=== PATIENT | female | born 1990 | race Caucasian/White ===

== ENCOUNTER 2016-11-29 17:08 | Emergency (ER) | payer BC, OTHER ==
--- NOTE | 2016-11-29 17:25 | UC ---
Abdominal Pain Female HPI - HPI Summary HPI Summary: The patient comes in today for: 1. Abdominal pain: Onset: 8 hours. Palliative/provocative: Sitting up makes it better as she leans back. Quality: Sharp and dull at times. Region: epigastric. Severity: 3/10 but can shoot up to a 5/10 Time: Comes and goes. Associated symptoms: Fevers: No temperature taken. Vomiting: None, but has nausea. Diarrhea: None. Last meal: Noon. Previous disease: None. Home: Parents and little brother. Her father has abdominal pain, but he has an umbilical hernia. * - History of Current Complaint Stated Complaint: ABDOMINAL PAIN Time Seen by Provider: 11/29/16 17:12 Hx Obtained From: Patient Hx Last Menstrual Period: 2 weeks ago ?: No Allergies/Adverse Reactions: Allergies Allergy/AdvReac Type Severity Reaction Status Date / Time Sulfa Antibiotics Allergy Rash Verified 01/16/16 09:37 PMH/Surg Hx/FS Hx/Imm Hx Previously Healthy: Yes Endocrine History Of: Denies: Diabetes, Thyroid Disease, Hyperthyroidism, Hypothyroidism, Dyslipidemia Cardiovascular History Of: Denies: Cardiac Disorders, Hypertension, Pacemaker/ICD, Myocardial Infarction , Congestive Heart Failure, Atrial Fibrillation, Deep Vein Thrombosis, Bleeding Disorders Respiratory History Of: Denies: COPD, Asthma, Bronchitis, Pneumonia, Pulmonary Embolism GI/ History Of: Denies: Gastroesophageal Reflux, Ulcer, Gastrointestinal Bleed, Gall Bladder Disease, Kidney Stones, Diverticulitis, Renal Disease, Urosepsis Neurological History Of: Denies: TIA, CVA, Dementia, Seizures, Migraine Psychological History Of: Denies: Anxiety, Depression, Bipolar Disorder, Schizophrenia, Post Traumatic Stress Disorder Cancer History Of: Denies: Lung Cancer, Colorectal Cancer, Breast Cancer, Prostate Cancer, Cervical Cancer Other History Of: Negative For: HIV, Hepatitis B, Hepatitis C, Anticoagulant Therapy - Surgical History Surgical History: Yes Surgery Procedure, Year, and Place: t & A; ear tubes multiple times - Family History Known Family History: Positive: Cardiac Disease, Hypertension - Social History Occupation: Employed Full-time Alcohol Use: Rare Substance Use Type: None Smoking Status (MU): Former Smoker Type: Cigarettes When Did the Patient Quit Smoking/Using Tobacco: 2 yrs - Immunization History Most Recent Influenza Vaccination: 2013/2014 Review of Systems Constitutional: Negative Skin: Negative Eyes: Negative ENT: Negative Respiratory: Negative Cardiovascular: Negative Gastrointestinal: Abdominal Pain Genitourinary: Negative All Other Systems Reviewed And Are Negative: Yes Physical Exam Triage Information Reviewed: Yes Appearance: Well-Appearing, No Pain Distress, Well-Nourished Vital Signs Reviewed: Yes Eyes: Positive: Conjunctiva Clear. Negative: Discharge ENT: Positive: Hearing grossly normal. Negative: Pharyngeal erythema, Nasal congestion, Nasal drainage, TM bulging, TM dull, TM red, Tonsillar swelling, Tonsillar exudate Dental: Negative: Gross Decay/Caries @, Dental Fracture @ Neck: Positive: Supple, Nontender, No Lymphadenopathy. Negative: Nuchal Rigidity Respiratory: Positive: Chest non-tender, Lungs clear, No respiratory distress, No accessory muscle use. Negative: Crackles, Wheezing Cardiovascular: Positive: RRR, No Murmur Abdomen Description: Positive: No Organomegaly, Soft. Negative: Nontender - She has tenderness to palpation of the epigastric area. There is a fading of the pain way as one palpates towards the RUQ and the LUQ. There is no rebound, but there is percussion tenderness. The exam was hindered by the patien'ts body habitus. BMI: 50.8, Distended, Guarding Musculoskeletal: Positive: Strength Intact, ROM Intact, No Edema Neurological: Positive: Alert, Muscle Tone Normal Psychological: Positive: Age Appropriate Behavior, Consolable Skin: Negative: rashes, breakdown Abd Pain Female Course/Dx - Course Course Of Treatment: The patient was told that I don't know for sure what is causing her abdominal/epigastric. pain. The patient was also told that there are many causes for abdominal pain--. some which are benign and some which are life-threatening. Furthermore, it was. mentioned that the life-threatening causes of abdominal pain can present with. minimal symptoms suggesting that the problem is less severe than it actually is, atypical symptoms suggesting that the problem is some other condition or even be present with no symptoms. Becasue of these facts and the fact that we don't have here the testing methods commonly used to assess abdomianl. pain, and their timely results we are limited as to how deep we can evaluate her for the cause of her pain. She was told of her different diagnostic options. At this time, she wants to go to the [facility]. - Differential Dx/Diagnosis Provider Diagnoses: epigastric abdominal pain. - Physician Notification/Consults Discussed Patient Care With: Dr. Mcneill Time Discussed With Above Provider: 18:10 Discharge - Discharge Plan Condition: Stable Disposition: AGAINST MEDICAL ADVICE Additional Instructions: Please go directly to the [facility].
[2016-11-29 17:28] VITALS: BP 153/99
== END 2016-11-29 18:28 | disposition left against medical advice (07) ==
LOC: UCEAST 17:08
DX: R10.13 Epigastric pain (principal); Z88.2 Allergy status to sulfonamides; Z87.891 Personal history of nicotine dependence
CPT/HCPCS: 81002; 87086; 99212; G0463

== ENCOUNTER 2016-11-29 18:42 | Emergency (ER) | payer OTHER ==
[2016-11-29 19:52] LABS: Urine Bacteria Absent (Absent); Urine Bilirubin Negative (Negative); Urine Glucose Negative (Negative); Urine Nitrite Negative (Negative)
[2016-11-29 20:54] LABS: Hematocrit 32 % (35-47); Hemoglobin 9.7 g/dl (12.0-16.0); Mean Corpuscular HGB Conc 31 g/dl (31-36); Mean Corpuscular Hemoglobin 23 pg (27-31); Mean Corpuscular Volume 75 fL (80-97); Mean Platelet Volume 9 um3 (7.4-10.4); Red Blood Count 4.24 10^6/ul (4.0-5.4); Red Cell Distribution Width 17 % (10.5-15); White Blood Count 13.4 10^3/ul (3.5-10.8)
[2016-11-29 21:06] LABS: ALT 14 U/L (7-52); AST 11 U/L (13-39); Albumin 3.9 g/dL (3.2-5.2); Alkaline Phosphatase 73 U/L (34-104); Anion Gap 7 mmol/L (2-11); BUN/Creatinine Ratio 21.3 (8-20); Blood Urea Nitrogen 16 mg/dL (6-24); CO2 Carbon Dioxide 23 mmol/L (22-32); Chloride 104 mmol/L (101-111); EGFR African American 120.1 (>60); EGFR Non-African American 93.4 (>60); Globulin 3.1 g/dL (2-4); Glucose 87 mg/dL (70-100); Lipase < 10 U/L (11.0-82.0); Potassium 3.8 mmol/L (3.5-5.0); Sodium 134 mmol/L (133-145)
[2016-11-29] MEDS ORDERED: Pantoprazole IV* 40 MG IV ONE (22:44)
--- NOTE | 2016-11-29 22:46 | RAD ---
INDICATION: Right upper quadrant pain. COMPARISON: There are no prior studies available for comparison. TECHNIQUE: Multiple real-time images of the right upper quadrant were obtained. FINDINGS: There is a gallstone in the neck of the gallbladder. The gallbladder wall is not thickened. No pericholecystic fluid is present. No intra or extrahepatic ductal distention is present. The common bile duct measured 0.5 cm in diameter. The liver is normal in size without significant focal abnormality. The pancreas is partially obscured by overlying bowel gas. The right kidney is normal in size without evidence for hydronephrosis. IMPRESSION: CHOLELITHIASIS.
[2016-11-29 23:37] VITALS: BP 128/70
--- NOTE | 2016-12-01 00:28 | ED ---
John Garza Matthew, scribed for Tk López MD on 11/29/16 at 2044 . Abdominal Pain/Female - HPI Summary HPI Summary: A 26 y/o female presents to the ED with upper abdominal pain since 09:00 today. The pain is described as dull and aching and rated 2/10 in severity and 6/10 at is worst. The pain is unaffected by food. Associated symptoms include nausea and increased urination frequency. The patient denies vomiting, diarrhea, dysuria, and black stools. BM this morning, which was normal. LNMP was 2 weeks ago. - History of Current Complaint Chief Complaint: EDAbdPain Stated Complaint: ABD PAIN/CONV CARE Time Seen by Provider: 11/29/16 19:55 Hx Obtained From: Patient Hx Last Menstrual Period: 2 weeks ago ?: No Onset/Duration: Gradual Onset, Lasting Hours, Still Present Timing: Constant Severity Initially: Moderate Severity Currently: Mild Pain Intensity: 3 Pain Scale Used: 0-10 Numeric Location: Diffuse - upper abdomen Radiates: No Character: Dull, Other: - aching Aggravating Factor(s): Nothing Alleviating Factor(s): Nothing Associated Signs and Symptoms: Positive: Nausea, Other: - increased frequency. Negative: Blood in Stool, Vomiting, Diarrhea Allergies/Adverse Reactions: Allergies Allergy/AdvReac Type Severity Reaction Status Date / Time Sulfa Antibiotics Allergy Rash Verified 11/29/16 19:19 PMH/Surg Hx/FS Hx/Imm Hx Endocrine/Hematology History: Denies: Hx Anticoagulant Therapy, Hx Diabetes, Hx Thyroid Disease Cardiovascular History: Denies: Hx Congestive Heart Failure, Hx Deep Vein Thrombosis, Hx Hypertension , Hx Myocardial Infarction, Hx Pacemaker/ICD Respiratory History: Denies: Hx Asthma, Hx Chronic Obstructive Pulmonary Disease (COPD), Hx Lung Cancer, Hx Pneumonia, Hx Pulmonary Embolism GI History: Denies: Hx Gall Bladder Disease, Hx Gastrointestinal Bleed, Hx Ulcer, Hx Urosepsis History: Denies: Hx Kidney Stones, Hx Renal Disease Neurological History: Denies: Hx Dementia, Hx Migraine, Hx Seizures, Hx Transient Ischemic Attacks (TIA) Psychiatric History: Denies: Hx Anxiety, Hx Depression, Hx Schizophrenia, Hx Bipolar Disorder - Surgical History Surgery Procedure, Year, and Place: t & A; ear tubes multiple times Infectious Disease History: No Infectious Disease History: Denies: Hx Hepatitis, Hx Human Immunodeficiency Virus (HIV), History Other Infectious Disease, Traveled Outside the [place] in Last 30 Days - Family History Known Family History: Positive: Cardiac Disease, Hypertension - Social History Alcohol Use: Rare Substance Use Type: Reports: None Hx Tobacco Use: Yes - quit 2011 Smoking Status (MU): Former Smoker Type: Cigarettes Review of Systems Constitutional: Negative Eyes: Negative ENT: Negative Cardiovascular: Negative Respiratory: Negative Positive: Abdominal Pain - upper abdominal , Nausea. Negative: Vomiting, Diarrhea Genitourinary: Negative Musculoskeletal: Negative Skin: Negative Neurological: Negative Psychological: Normal All Other Systems Reviewed And Are Negative: Yes Physical Exam Triage Information Reviewed: Yes Vital Signs On Initial Exam: Initial Vitals Temp Pulse Resp BP Pulse Ox 98.4 F 72 16 130/82 100 11/29/16 19:15 11/29/16 19:15 11/29/16 19:15 11/29/16 19:15 11/29/16 19:15 Vital Signs Reviewed: Yes Appearance: Positive: Well-Appearing, No Pain Distress, Obese Skin: Positive: Warm, Skin Color Reflects Adequate Perfusion, Dry Eyes: Positive: EOMI, ROSS ENT: Positive: Normal ENT inspection Neck: Positive: Supple, Nontender Respiratory/Lung Sounds: Positive: Clear to Auscultation, Breath Sounds Present Cardiovascular: Positive: RRR Abdomen Description: Positive: Soft, Other: - moderate epigastric tenderness; mild bilateral upper quadrant tenderness Bowel Sounds: Positive: Present Musculoskeletal: Positive: Normal, Strength/ROM Intact Neurological: Positive: Normal, Sensory/Motor Intact, Alert, Oriented to Person Place, Time Psychiatric: Positive: Normal, Affect/Mood Appropriate Diagnostics - Vital Signs Vital Signs Temp Pulse Resp BP Pulse Ox 11/29/16 19:15 98.4 F 72 16 130/82 100 - Laboratory Lab Results: Lab Results 11/29/16 Range/Units 19:35 Urine Color Yellow Urine Appearance Cloudy Urine pH 5.0 (5-9) Ur Specific [place] 1.023 (1.010-1.030) Urine Protein Negative (Negative) Urine Ketones Negative (Negative) Urine Blood Negative (Negative) Urine Nitrate Negative (Negative) Urine Bilirubin Negative (Negative) Urine Urobilinogen Negative (Negative) Ur Leukocyte Esterase 3+ H (Negative) Urine WBC (Auto) 2+(11-20/hpf) H (Absent) Urine RBC (Auto) 1+(3-5/hpf) H (Absent) Ur Squamous Epith Cells Present H (Absent) Urine Bacteria Absent (Absent) Urine Glucose Negative (Negative) Result Diagrams: 11/29/16 20:10 11/29/16 20:10 Lab Statement: Any lab studies that have been ordered have been reviewed, and results considered in the medical decision making process. - Ultrasound No standard instances Ultrasound Interpretation: Positive (See Comments) - IMPRESSION: CHOLELITHIASIS. Ultrasound Interpretation Completed By: Radiologist Abdominal Pain Fem Course/Dx - Course Course Of Treatment: Ms. Eldridge presented C/O epigastric pain for several days. She was tender in the epigastium and RUQ. She was found to have some gallstones but no cholecystitis. Her labs revealed a slight leukocytosis. She improved with protonix and sucralfate and I will give her a short course of omeprazole and recommend F/U. - Diagnoses Provider Diagnoses: Epigastric abdominal pain Discharge - Discharge Plan Condition: Stable Disposition: HOME Prescriptions: Omeprazole CAP* [Prilosec CAP* 20 MG] 20 mg PO BID #20 cap. Patient Education Materials: Omeprazole (By mouth), Epigastric Pain (ED) Referrals: Shira Wilhelm, [employer] [Primary Care Provider] - 3 Days Additional Instructions: Please follow-up with your primary care physician. The documentation as recorded by the John medeiros Matthew accurately reflects the service I personally performed and the decisions made by me, Tk López MD.
== END 2016-11-29 23:36 | disposition home or self-care (01) ==
LOC: ED 18:42
DX: R10.13 Epigastric pain (principal); Z87.891 Personal history of nicotine dependence; Z88.2 Allergy status to sulfonamides; K80.20 Calculus of gallbladder without cholecystitis without obstruction
CPT/HCPCS: 36415; 76705; 80053; 81002; 81003; 81015; 83605; 83690; 85025; 86140; 87086; 96374; 99212; 99282; G0463

== ENCOUNTER 2017-12-16 15:48 | Emergency (ER) | payer SELFPAY ==
[2017-12-16 16:07] VITALS: BP 143/84
--- NOTE | 2017-12-16 16:25 | UC ---
Knee Pain HPI - History of Current Complaint Chief Complaint: UCLowerExtremity Stated Complaint: KNEE INJURY Time Seen by Provider: 12/16/17 16:15 Hx Obtained From: Patient Hx Last Menstrual Period: 2 weeks ago ?: No Onset/Duration: Sudden Onset - fell over an object and fell onto R knee Severity Initially: Moderate Severity Currently: Mild Pain Intensity: 2 Character: Throbbing, Stiffness Aggravating Factor(s): Movement, Weight Bearing Alleviating Factor(s): Rest, Position Associated Signs And Symptoms: Positive: Redness Able to Bear Weight: Yes - Allergies/Home Medications Allergies/Adverse Reactions: Allergies Allergy/AdvReac Type Severity Reaction Status Date / Time Sulfa (Sulfonamide Allergy Rash Verified 12/16/17 16:08 Antibiotics) Home Medications: Home Medications Dextroamphetamine/Amphetamine [Dextroamp-Amphetamin 20 mg Tab] 1 tab PO BID [History Confirmed 12/16/17] buPROPion TAB* [Wellbutrin TAB*] 300 mg PO DAILY 12/16/17 [History Confirmed ] PMH/Surg Hx/FS Hx/Imm Hx Previously Healthy: Yes Psychological History: Depression Other Psychological History: ADHD Other History Of: Negative For: HIV, Hepatitis B, Hepatitis C, Anticoagulant Therapy - Surgical History Surgical History: Yes Surgery Procedure, Year, and Place: t & A; ear tubes multiple times - Family History Known Family History: Positive: Cardiac Disease, Hypertension - Social History Occupation: Employed Full-time - pharmacy Lives: With Family Alcohol Use: Rare Substance Use Type: None Smoking Status (MU): Former Smoker Type: Cigarettes When Did the Patient Quit Smoking/Using Tobacco: 2 yrs - Immunization History Most Recent Influenza Vaccination: Review of Systems Constitutional: Negative Skin: Negative Respiratory: Negative Cardiovascular: Negative Motor: Negative Neurovascular: Negative Musculoskeletal: Other: - pain R knee Neurological: Negative Psychological: Negative Is Patient Immunocompromised?: No All Other Systems Reviewed And Are Negative: Yes Physical Exam Triage Information Reviewed: Yes Appearance: Well-Appearing, No Pain Distress, Obese Vital Signs: Initial Vital Signs Temp 98.3 F 12/16/17 16:05 Pulse 86 12/16/17 16:05 Resp 12 12/16/17 16:05 BP 143/84 12/16/17 16:05 Pulse Ox 100 12/16/17 16:05 Vital Signs Reviewed: Yes Neck exam: Normal Respiratory Exam: Normal Cardiovascular Exam: Normal Musculoskeletal: Positive: Strength Intact, ROM Intact, Other: - point tenderness R patella, no pateller apprehension on exam Neurological Exam: Normal Psychological Exam: Normal Skin Exam: Normal Diagnostics - Radiology No standard instances Xray Interpretation: No Acute Changes Knee Pain Course/Dx - Differential Dx/Diagnosis Differential Diagnosis/HQI/PQRI: Contusion, Fracture (Closed), Sprain Provider Diagnoses: R knee contusion Discharge - Discharge Plan Condition: Stable Disposition: HOME Patient Education Materials: Contusion in Adults (ED) Referrals: Shira Wilhelm NP [Primary Care Provider] - 3 Days (if no better) Additional Instructions: Ice and elevate your R knee for 2-3 days use ibuprofen 600-800mg three times a day as needed for pain Use rosina for 3 days, remove for sleep/bedtime
--- NOTE | 2017-12-16 16:36 | RAD ---
HISTORY: Fall, right knee pain COMPARISONS: None VIEWS: 4, Frontal, lateral, axial, and oblique views of the right knee FINDINGS: BONE DENSITY: Normal. BONES: There is no displaced fracture. JOINTS: There is no arthropathy. There is no suprapatellar joint effusion or lipohemarthrosis. ALIGNMENT: There is no dislocation. SOFT TISSUES: Unremarkable. OTHER FINDINGS: None. IMPRESSION: NO ACUTE OSSEOUS INJURY. IF SYMPTOMS PERSIST, RECOMMEND REPEAT IMAGING.
== END 2017-12-16 17:45 | disposition home or self-care (01) ==
LOC: UCEAST 15:48
DX: S80.01XA Contusion of right knee, initial encounter (principal); Z87.891 Personal history of nicotine dependence; W22.8XXA Striking against or struck by other objects, initial encounter; Y92.9 Unspecified place or not applicable
CPT/HCPCS: 99212; G0463

== ENCOUNTER 2018-04-10 19:36 | Emergency (ER) | payer OTHER ==
[2018-04-10] MEDS ORDERED: Ketorolac INJ* 30 MG/ML 1 ML VIAL IV ONE (20:12)
[2018-04-10] MEDS ORDERED: Metoclopramide IV* 5 MG/ML 2 ML VIAL IV ONE (20:12)
--- NOTE | 2018-04-10 20:42 | RAD ---
INDICATION: Abdominal pain. COMPARISON: Comparison is made with a prior right upper quadrant ultrasound from November 29, 2016. TECHNIQUE: A CT scan of the abdomen and pelvis was performed without intravenous and without oral contrast. Contiguous axial sections were obtained from the lung bases through the symphysis pubis. Images were reconstructed in the coronal and sagittal planes. FINDINGS: The lung bases are clear. No pleural effusion is present. The liver is normal in size without significant focal abnormality on this noncontrast study. Note is made of gallstones. The gallbladder is not distended. No surrounding inflammatory changes are seen. The spleen is moderately enlarged without focal abnormality. The pancreas appears to be within normal limits. The adrenal glands and kidneys are normal in size. No renal calculi or hydronephrosis is seen. The aorta is normal in caliber without significant calcific plaque. No significant enlarged retroperitoneal lymph nodes are seen. The stomach, small and large bowel appear nondistended. The appendix is within normal limits. There is mild descending and sigmoid diverticulosis without evidence for diverticulitis or colitis. There is a small periumbilical hernia containing fat. The uterus is anteverted and normal in size. There is a hypodense lesion in the lower uterine segment measuring 1.9 cm in size possibly representing a prominent nabothian cyst. There is a large left ovarian cyst measuring 6.6 x 5.5 cm in size. There is sclerotic change around both sacroiliac joints consistent with sacroiliitis. No significant focal osseous abnormality is seen. IMPRESSION: 1. CHOLELITHIASIS. 2. SPLENOMEGALY. 3. 6.6 CM LEFT OVARIAN CYST. RECOMMEND A FOLLOW-UP PELVIC ULTRASOUND FOR FURTHER EVALUATION. 4. BILATERAL SACROILIITIS.
[2018-04-10 21:20] LABS: EGFR Non-African American 62.4 (>60)
[2018-04-10 21:21] LABS: Urine Appearance Cloudy; Urine Blood Negative (Negative); Urine Color Yellow; Urine Ketones Negative (Negative); Urine Protein Negative (Negative); Urine Specific Gravity 1.017 (1.010-1.030); Urine Urobilinogen Negative (Negative)
[2018-04-10 21:29] LABS: ABS Basophils 0 10^3/ul (0-0.2); ABS Eosinophils 0.2 10^3/ul (0-0.6); ABS Lymphocytes 2.4 10^3/ul (1.0-4.8); ABS Monocytes 0.6 10^3/ul (0-0.8); ABS Neutrophils 8.3 10^3/ul (1.5-7.7); ABS Nucleated RBC 0 10^3/ul; Eosinophil % 1.9 % (0-6); Hematocrit 31 % (35-47); Hemoglobin 9.9 g/dl (12.0-16.0); Lymphocyte % 20.9 % (25-47); Mean Corpuscular HGB Conc 32 g/dl (31-36); Mean Corpuscular Hemoglobin 24 pg (27-31); Mean Corpuscular Volume 75 fL (80-97); Mean Platelet Volume 8.2 um3 (7.4-10.4); Nucleated Red Blood Cells % 0; Platelet Count 248 10^3/ul (150-450); Red Blood Count 4.12 10^6/ul (4.00-5.40); Red Cell Distribution Width 17 % (10.5-15); White Blood Count 11.6 10^3/ul (3.5-10.8)
[2018-04-10] MEDS ORDERED: Levofloxacin 500 MG IVPREMIX(* 500 MG/100 ML BAG IVPB ONE (23:07)
--- NOTE | 2018-04-10 23:33 | ED ---
Francesca Garza Gabriel, scribtomas for Winston Cummins MD on 04/10/18 at 2003 . Back Pain - HPI Summary HPI Summary: This patient is a 28 year old F presenting to [facility] with a chief complaint of bilateral flank pain that has been increasing for the past two weeks. The patient rates the pain 7/10 in severity. Patient reports chills, nausea, and increased urinary frequency. Pt is concerned for kidney stones. No hx of kidney infections. Fmhx of kidney stones. - History of Current Complaint Chief Complaint: EDFlankPain Stated Complaint: ABD/BACK PAIN Time Seen by Provider: 04/10/18 19:55 Hx Obtained From: Patient Hx Last Menstrual Period: 2 weeks ago Onset/Duration: Still Present, Worse Since Onset/Duration: Started Weeks Ago - 2, Still Present Timing: Constant Back Pain Location: Is Diffuse Severity Initially: Mild Severity Currently: Moderate Pain Intensity: 7 Pain Scale Used: 0-10 Numeric Associated Signs And Symptoms: Positive: Other - chills, nausea, and increased urinary frequency. - Allergies/Home Medications Allergies/Adverse Reactions: Allergies Allergy/AdvReac Type Severity Reaction Status Date / Time Sulfa (Sulfonamide Allergy Rash Verified 04/10/18 19:45 Antibiotics) PMH/Surg Hx/FS Hx/Imm Hx Endocrine/Hematology History: Denies: Hx Anticoagulant Therapy, Hx Diabetes, Hx Thyroid Disease Cardiovascular History: Denies: Hx Auto Implanted Cardiovert Defib, Hx Congestive Heart Failure, Hx Deep Vein Thrombosis, Hx Hypertension, Hx Myocardial Infarction, Hx Pacemaker/ ICD Respiratory History: Denies: Hx Asthma, Hx Chronic Obstructive Pulmonary Disease (COPD), Hx Lung Cancer, Hx Pneumonia, Hx Pulmonary Embolism GI History: Denies: Hx Gall Bladder Disease, Hx Gastrointestinal Bleed, Hx Ulcer, Hx Urosepsis History: Denies: Hx Kidney Stones, Hx Renal Disease Neurological History: Denies: Hx Dementia, Hx Migraine, Hx Seizures, Hx Transient Ischemic Attacks (TIA) Psychiatric History: Denies: Hx Anxiety, Hx Depression, Hx Schizophrenia, Hx Bipolar Disorder - Surgical History Surgery Procedure, Year, and Place: t & A; ear tubes multiple times Infectious Disease History: No Infectious Disease History: Denies: Hx Hepatitis, Hx Human Immunodeficiency Virus (HIV), History Other Infectious Disease, Traveled Outside the [place] in Last 30 Days - Family History Known Family History: Positive: Cardiac Disease, Hypertension, Other - kidney stones - Social History Alcohol Use: Rare Substance Use Type: Reports: None Hx Tobacco Use: Yes - quit 2011 Smoking Status (MU): Former Smoker Type: Cigarettes Review of Systems Positive: Chills Positive: Nausea Positive: frequency, flank pain All Other Systems Reviewed And Are Negative: Yes Physical Exam - Summary Physical Exam Summary: VITAL SIGNS: Reviewed. GENERAL: Patient is a well-developed and morbidly obese female who is lying comfortable in the stretcher. Patient is not in any acute respiratory distress. HEAD AND FACE: No signs of trauma. No ecchymosis, hematomas or skull depressions. No sinus tenderness. EYES: PERRLA, EOMI x 2, No injected conjunctiva, no nystagmus. EARS: Hearing grossly intact. Ear canals and tympanic membranes are within normal limits. MOUTH: Oropharynx within normal limits. NECK: Supple, trachea is midline, no adenopathy, no JVD, no carotid bruit, no c- spine tenderness, neck with full ROM. CHEST: Symmetric, no tenderness at palpation LUNGS: Clear to auscultation bilaterally. No wheezing or crackles. CVS: Regular rate and rhythm, S1 and S2 present, no murmurs or gallops appreciated. ABDOMEN: Soft, non-tender. No signs of distention. No rebound no guarding, and no masses palpated. Bowel sounds are normal. Bilateral CVA tenderness EXTREMITIES: FROM in all major joints, no edema, no cyanosis or clubbing. NEURO: Alert and oriented x 3. No acute neurological deficits. Speech is normal and follows commands. SKIN: Dry and warm Triage Information Reviewed: Yes Vital Signs On Initial Exam: Initial Vitals Temp Pulse Resp BP Pulse Ox 97.8 F 92 16 106/68 99 04/10/18 19:43 04/10/18 19:43 04/10/18 19:43 04/10/18 19:43 04/10/18 19:43 Vital Signs Reviewed: Yes Diagnostics - Vital Signs Vital Signs Temp Pulse Resp BP Pulse Ox 04/10/18 19:43 97.8 F 92 16 106/68 99 - Laboratory Result Diagrams: 04/10/18 20:56 04/10/18 20:56 Lab Statement: Any lab studies that have been ordered have been reviewed, and results considered in the medical decision making process. - CT CT ABD/Pelvis' CT Interpretation Completed By: Radiologist - 1. CHOLELITHIASIS. 2. SPLENOMEGALY. 3. 6.6 CM LEFT OVARIAN CYST. RECOMMEND A FOLLOW-UP PELVIC ULTRASOUND FOR FURTHER EVALUATION. 4. BILATERAL SACROILIITIS. ED physician has reviewed this radiology report. Back Pain Course/Dx - Course Assessment/Plan: This patient is a 28 year old F presenting to [facility] with a chief complaint of bilateral flank pain that has been increasing for the past two weeks. The patient rates the pain 7/10 in severity. Patient reports chills, nausea, and increased urinary frequency. No hx of kidney infections. Fmhx of kidney stones. CT ABD/Pelvis reveals, per radiologist, 1. CHOLELITHIASIS. 2. SPLENOMEGALY. 3. 6.6 CM LEFT OVARIAN CYST. RECOMMEND A FOLLOW-UP PELVIC ULTRASOUND FOR FURTHER. EVALUATION. 4. BILATERAL SACROILIITIS. Test results with no significant abnormalities except for UA that was positive for UTI. In the ED course the patient was given toradol, levaquin, and reglan. Dx cholelithiasis and uti. Patient will be discharged and follow up from PCP. The patient is agreeable with this plan. - Diagnoses Provider Diagnoses: UTI (urinary tract infection), Cholelithiasis Discharge - Sign-Out/Discharge Documenting (check all that apply): Discharge/Admit/Transfer - Discharge Plan Condition: Stable Disposition: HOME Prescriptions: Ibuprofen TAB* [Motrin TAB* 800 MG] 800 mg PO Q6H PRN #30 tab PRN Reason: Pain Levofloxacin TAB* [Levaquin TAB*] 500 mg PO DAILY #7 tab Patient Education Materials: Gallstones (ED), Urinary Tract Infection in Women ([place]) Referrals: Megan Hinkle SCIENCE EDITOR [Primary Care Provider] - 3 Days Additional Instructions: RETURN TO THE ER FOR ANY NEW OR WORSENING SYMPTOMS The documentation as recorded by the Francesca medeiros Gabriel accurately reflects the service I personally performed and the decisions made by , Winston Cummins MD.
[2018-04-10 23:37] VITALS: BP 134/76
[2018-04-10] MEDS ORDERED: Levofloxacin TAB* 500 MG ONE (23:41)
[2018-04-10] MEDS ORDERED: Levofloxacin TAB* 500 MG PO ONE (23:42)
== END 2018-04-10 23:47 | disposition home or self-care (01) ==
LOC: ED 19:36
DX: N39.0 Urinary tract infection, site not specified (principal); K80.20 Calculus of gallbladder without cholecystitis without obstruction; N83.202 Unspecified ovarian cyst, left side; N85.9 Noninflammatory disorder of uterus, unspecified; R16.1 Splenomegaly, not elsewhere classified; M46.1 Sacroiliitis, not elsewhere classified; Z87.891 Personal history of nicotine dependence; Z84.1 Family history of disorders of kidney and ureter; Z88.0 Allergy status to penicillin
CPT/HCPCS: 36415; 74176; 80053; 81003; 81015; 83690; 84702; 85025; 86140; 87086; 96374; 96375; 99284; J1885; J2765

== ENCOUNTER 2018-06-06 21:52 | Emergency (ER) | payer BC, OTHER ==
[2018-06-06 22:02] VITALS: BP 138/79
--- NOTE | 2018-06-06 22:10 | UC ---
Eye Complaint HPI - HPI Summary HPI Summary: This patient is a 28 year old F presenting to [facility] with a chief complaint of lower R eye pain that began yesterday. The patient rates the pain 1 /10 in severity. Symptoms aggravated by nothing. Symptoms alleviated by nothing. Patient reports drainage from eye. Patient denies nasal discharge. Pt denies wearing contacts. - History of Current Complaint Chief Complaint: UCEye Stated Complaint: EYE COMPLAINT Hx Obtained From: Patient Hx Last Menstrual Period: NOW ?: No Onset/Duration: Sudden Onset, Lasting Days, Still Present Timing: Constant Severity Initially: Mild Severity Currently: Mild Pain Intensity: 1 Pain Scale Used: 0-10 Numeric Aggravating Factor(s): Nothing Alleviating Factor(s): Nothing Associated Signs And Symptoms: Positive: Drainage (Clear) - Allergies/Home Medications Allergies/Adverse Reactions: Allergies Allergy/AdvReac Type Severity Reaction Status Date / Time Sulfa (Sulfonamide Allergy Rash Verified 06/06/18 22:02 Antibiotics) Home Medications: Home Medications Amphetamine MIXED SALTS TAB* [Adderall TAB*] 06/06/18 [History] Ibuprofen TAB* [Advil TAB*] 400 mg PO PRN 06/06/18 [History] Norgestimate-Ethinyl Estradiol [Trinessa Tablet] 1 each PO DAILY 06/06/18 [ History Confirmed 06/06/18] PMH/Surg Hx/FS Hx/Imm Hx Previously Healthy: Yes Endocrine History: Other Other Endocrine History: Negative diabetes Cardiovascular History: Other Other Cardiovascular History: Negative HTN Other History Of: Negative For: HIV, Hepatitis B, Hepatitis C, Anticoagulant Therapy - Surgical History Surgical History: Yes Surgery Procedure, Year, and Place: t & A; ear tubes multiple times - Family History Known Family History: Positive: Cardiac Disease, Hypertension, Other - kidney stones - Social History Occupation: Employed Full-time Lives: With Family Alcohol Use: None Substance Use Type: None Smoking Status (MU): Former Smoker Type: Cigarettes When Did the Patient Quit Smoking/Using Tobacco: 2 yrs - Immunization History Most Recent Influenza Vaccination: 2013/2014 Review of Systems Eyes: Other - Positive ey pain and drainage from eye ENT: Other - Negative nasal discharge All Other Systems Reviewed And Are Negative: Yes Physical Exam - Summary Physical Exam Summary: General: well-appearing, no pain distress Skin: warm, color reflects adequate perfusion, dry Head: normal Eyes: EOMI, ROSS. Right, lower lateral lid has welling. There is a stye. ENT: normal Neck: supple, nontender Respiratory: CTA, breath sounds present Cardiovascular: RRR Abdomen: soft, nontender Bowel: present Musculoskeletal: normal, strength/ROM intact Neurological: sensory/motor intact, A&O x3 Psychological: affect/mood appropriate Triage Information Reviewed: Yes Vital Signs: Initial Vital Signs Temp 97.6 F 06/06/18 21:58 Pulse 80 06/06/18 21:58 Resp 16 06/06/18 21:58 BP 138/79 06/06/18 21:58 Pulse Ox 99 06/06/18 21:58 Vital Signs Reviewed: Yes Eye Complaint Course/Dx - Course Course Of Treatment: RX TOBREX. DISCUSSED WARM COMPRESSES. F/U PMD IF NOT COMPLETELY IMPROVED; RECHECK SOONER IF WORSE. - Differential Dx/Diagnosis Provider Diagnoses: RIGHT LOWER EYELID STYE Discharge - Sign-Out/Discharge Documenting (check all that apply): Patient Departure - Discharge Plan Condition: Stable Disposition: HOME Patient Education Materials: Jos (ED) Forms: *Work Release Referrals: Megan Hinkle NP [Primary Care Provider] - Additional Instructions: FOLLOW UP WITH YOUR DOCTOR IF NOT COMPLETELY IMPROVED. GET RECHECKED FOR ANY WORSENING OF YOUR CONDITION OR QUESTIONS OR CONCERNS. - Billing Disposition and Condition Condition: STABLE Disposition: Home Attestation Statement Scribe Attestation: This is mala Clifton documenting for attending Zia Sorensen MD. User Type: Provider with Scribe Provider Attestation: The documentation recorded by the scribe accurately reflects the service I personally performed and the decisions made by me.
--- OUTSIDE RECORDS SUMMARY | 2018-06-06 22:13 | XMS REPORT ---
:1990 External Reference #:[id number] Author Organization [facility] Address [address] [place] [address] Phone [phone] Care Team Providers Name Role Phone Megan Hinkle NP Care Team Information Office Mover Unavailable Payers Type Date Identification Numbers Payment Provider Subscriber Health Maintenance Effective: Policy Number: [facility] ([facility]) 10/30/2010 [id number] Health News(Empir e) Expires: 03/30/2016 Group Name: [place] [address] PayID: [id number] [place] [address] Medigap Part B Effective: Policy Number: Medicaid/Computer Andrade Howard 03/30/2016 [id number] Nahid Eldridge Expires: 05/29/2016 Group Name: 1 1 [address] PayID: [id number] [place] [address] Commercial Policy Number: [id number] [facility] Medicaid Andrade Eldridge PayID: [id number] 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 Use Former Cigarette Smoker 2 Packs Daily 6 yrs total ETOH Use Denies alcohol use Recreational Drug Use Denies Drug Use Smoking Patient is a former smoker Enjoy Exercising Does not enjoy exercising Allergies, Adverse Reactions, Alerts Date Description Reaction Status Severity Comments 12/09/2013 Sulfa rash active 12/09/2013 Ketorolac not certain if allergic can take active Ibuprofen 04/26/2017 Cymbalta neg SE active 04/26/2017 Abilify neg SE active 04/20/2018 Levaquin Rash active Medications Medication Date Status Form Strength Qnty SIG Indications Ordering Provider Ortho 05/25/ Active Tablets 0.18/0.215 28tabs take 1 N92.6 Megan Tri-Cyclen 2017 /0.25 tablet by Arin (28) mg-35 mcg mouth once [employer] daily as directed Wellbutrin XL 08/30/ Active Tablets 300mg 30tabs Take One Brittany Collier 2016 ER 24HR Tablet By Adan Mouth Every [employer] Day Adderall 07/03/ Active Tablets 20mg 60tabs 1 tab by Megan Monique mouth twice Tigistle, a day [employer] Adderall 05/24/ Hx Tablets 15mg 60tabs 1 tab by Shira 2017 - mouth twice Choco, 07/03/ a day [facility]- 2016 No Active 04/21/ Hx Unknown Medications 2016 - 2016 Wellbutrin XL 04/21/ Hx Tablets 150mg 30tabs 1 by mouth Shira 2016 - ER 24HR every day Choco 08/30/ [facility] 2016 Fluoxetine HCL 03/21/ Hx Tablets 10mg 30tabs 1/2 tab by Shira 2017 - mouth every Choco, day x 7 [employer] 2016 days then 1 tab by mouth every day No Active 03/02/ Hx Unknown Medications 2015 - 2016 Fluocinolone 12/09/ Hx Cream 0.025% 60gm apply 691.8 Shira Acetonide 2013 - sparingly Choco 03/02/ to arms [facility] 2015 qd-bid Medications Administered in Office Medication Date Status Form Strength Qnty SIG Indications Ordering Provider TB,Intradermal Administered Injection Shira (PPD, Mantoux) 017 PRESLEY Oconnell TB,Intradermal Administered Injection Lab and (PPD, Mantoux) 016 Office Services TB,Intradermal Administered Injection Shira (PPD, Mantoux) 016 PRESLEY Oconnell Immunizations CPT Code Status Date Vaccine Lot # [id number] Given 06/27/2017 Influenza Virus Vaccine, Quadrivalent, 3 Yr > Quad, Preserv Free 46331 Given 03/21/2017 Tdap (Adacel) [id number] 63176 Given 07/19/2016 Influenza Virus Vaccine, Quadrivalent, 3 Yr > Quad, Preserv Free 93997 Given 04/27/2016 Varicella (Chicken Pox) Vaccine [id number] 35831 Given 03/29/2016 Varicella (Chicken Pox) Vaccine [id number] 57264 Given 08/28/2015 Influenza Virus Vaccine, Quadrivalent, 3 Yr > [id number] Quad, Preserv Free 51435 Given 02/12/2008 Menactra (meningococcal conjugate vaccine) 99218 Given 02/12/2008 HPV Vaccine, Gardasil 08192 Given 12/06/2007 Hepatitis A (Ped) 2 Dose Schedule 90129 Given 11/07/2007 HPV Vaccine, Gardasil 85675 Given 09/17/2007 HPV Vaccine, Gardasil 07013 Given 07/20/2007 Tdap (Adacel) 85168 Given 07/20/2007 HPV Vaccine, Gardasil 54294 Given 01/31/2007 HPV Vaccine, Gardasil 46751 Given 07/07/2006 Hepatitis A (Ped) 2 Dose Schedule 50145 Given 05/10/2002 Td Age 7 to adult Decavac, Tenivac, [employer] 37494 Given 04/13/2000 Hep B Vaccine, Ped/Adol Dose 3 Dose (Engerix or Recombivax) 27103 Given 11/13/1997 Hep B Vaccine, Ped/Adol Dose 3 Dose (Engerix or Recombivax) 90838 Given 09/11/1997 Hep B Vaccine, Ped/Adol Dose 3 Dose (Engerix or Recombivax) 31784 Given 09/11/1997 MMR (Measles,Mumps,Rubella) 23210 Given 07/03/1995 DTaP (Daptacel) 44041 Given 06/02/1995 Inactivated Polio Vaccine, Injectable (Ipol) 94271 Given 08/30/1991 Inactivated Polio Vaccine, Injectable (Ipol) 37602 Given 08/30/1991 DTaP (Daptacel) 77272 Given 06/19/1991 Hib (Hemophilus Influenza B) (Acthib) 26850 Given 06/19/1991 MMR (Measles,Mumps,Rubella) 94372 Given 02/15/1991 Hib (Hemophilus Influenza B) (Acthib) 21808 Given 1990 DTaP (Daptacel) 71331 Given 1990 Hib (Hemophilus Influenza B) (Acthib) 25169 Given 1990 Inactivated Polio Vaccine, Injectable (Ipol) 32957 Given 1990 DTaP (Daptacel) 28104 Given 1990 Inactivated Polio Vaccine, Injectable (Ipol) 72542 Given 1990 DTaP (Daptacel) Vital Signs Date Vital Result Comment 05/25/2018 Weight 294.00 lb Weight in kg's 133.358 BP Systolic 120 mmHg BP Diastolic 74 mmHg Heart Rate 74 /min Body Temperature 98.0 F Respiratory Rate 16 /min 04/20/2018 Weight 323.00 lb Weight in kg's 146.513 BP Systolic 122 mmHg BP Diastolic 70 mmHg Heart Rate 72 /min Body Temperature 97.3 F Respiratory Rate 16 /min Height 68 inches 5'8" BMI (Body Mass Index) 49.1 kg/m2 O2 % BldC Oximetry 99 % 02/20/2018 Weight 323.00 lb Weight in kg's 146.513 BP Systolic 112 mmHg BP Diastolic 76 mmHg Heart Rate 87 /min Body Temperature 97.6 F Respiratory Rate 15 /min Height 68 inches 5'8" BMI (Body Mass Index) 49.1 kg/m2 O2 % BldC Oximetry 99 % 08/30/2017 Weight 327.00 lb Weight in kg's 148.327 BP Systolic 140 mmHg BP Diastolic 82 mmHg Heart Rate 66 /min Body Temperature 97.0 F Respiratory Rate 18 /min O2 % BldC Oximetry 99 % 04/21/2017 Weight 335.00 lb Weight in kg's 151.956 BP Systolic 126 mmHg BP Diastolic 74 mmHg Heart Rate 68 /min Body Temperature 98.0 F Respiratory Rate 20 /min O2 % BldC Oximetry 98 % 03/21/2017 Weight 239.00 lb Weight in kg's 108.410 BP Systolic 127 mmHg BP Diastolic 74 mmHg Heart Rate 76 /min Height 66 inches 5'6" BMI (Body Mass Index) 38.6 kg/m2 Last Menstrual Period [id number] 07/08/2016 BP Systolic 125 mmHg BP Diastolic 70 mmHg Heart Rate 84 /min Body Temperature 99.1 F O2 % BldC Oximetry 98 % 03/02/2016 Weight 329.00 lb Weight in kg's 149.234 BP Systolic 140 mmHg BP Diastolic 88 mmHg Heart Rate 76 /min Body Temperature 98.5 F Height 66.25 inches 5'6.25" BMI (Body Mass Index) 52.7 kg/m2 Right Visual Acuity Distance 20/30 Corrected Left Visual Acuity Distance 20/30 Corrected Both Visual Acuity Distance 20/25 Corrected Last Menstrual Period [id number] 12/31/2015 Weight 336.00 lb Weight in kg's 152.410 BP Systolic 140 mmHg BP Diastolic 72 mmHg Heart Rate 65 /min Body Temperature 97.5 F motrin 1230 O2 % BldC Oximetry 99 % 08/28/2015 Weight 325.00 lb Weight in kg's 147.420 BP Systolic 130 mmHg BP Diastolic 70 mmHg Heart Rate 72 /min Last Menstrual Period [id number] Currently Has It 05/29/2014 Weight 298.00 lb Weight in kg's 135.173 BP Systolic 114 mmHg BP Diastolic 70 mmHg Heart Rate 66 /min Body Temperature 97.3 F O2 % BldC Oximetry 97 % 12/09/2013 Weight 303.00 lb Weight in kg's 137.441 BP Systolic 110 mmHg BP Diastolic 72 mmHg Heart Rate 84 /min Height 66 inches 5'6" BMI (Body Mass Index) 48.9 kg/m2 Results Test Date Test Result H/L Range Note Laboratory test finding 05/25/2018 Ferritin <pending> Iron (Fe) <pending> Laboratory test finding 05/25/2018 HCG DIP Test <pending> Neg CBC Auto Diff 04/20/2018 White Blood Count 7.3 10^3/uL 3.5-10.8 Red Blood Count 4.39 10^6/uL 4.00-5.40 Hemoglobin 10.7 g/dL Low 12.0-16.0 Hematocrit 34 % Low 35-47 Mean Corpuscular Volume 77 fL Low 80-97 Mean Corpuscular Hemoglobin 25 pg Low 27-31 Mean Corpuscular HGB Conc 32 g/dL 31-36 Red Cell Distribution Width 17 % High 10.5-15 Platelet Count 241 10^3/uL 150-450 Mean Platelet Volume 8.7 um3 7.4-10.4 Abs Neutrophils 4.9 10^3/uL 1.5-7.7 Abs Lymphocytes 1.8 10^3/uL 1.0-4.8 Abs Monocytes 0.4 10^3/uL 0-0.8 Abs Eosinophils 0.2 10^3/uL 0-0.6 Abs Basophils 0 10^3/uL 0-0.2 Abs Nucleated RBC 0 10^3/uL Granulocyte % 67.7 % 38-83 Lymphocyte % 24.0 % Low 25-47 Monocyte % 5.6 % 0-7 Eosinophil % 2.4 % 0-6 Basophil % 0.3 % 0-2 Nucleated Red Blood Cells % 0 Comp Metabolic Panel 04/20/2018 Sodium 137 mmol/L 135-145 Potassium 4.5 mmol/L 3.5-5.0 Chloride 106 mmol/L 101-111 Co2 Carbon Dioxide 23 mmol/L 22-32 Anion Gap 8 mmol/L 2-11 Glucose 80 mg/dL 70-100 Blood Urea Nitrogen 18 mg/dL 6-24 Creatinine 0.75 mg/dL 0.51-0.95 BUN/Creatinine Ratio 24.0 High 8-20 Calcium 9.4 mg/dL 8.6-10.3 Total Protein 6.6 g/dL 6.4-8.9 Albumin 4.0 g/dL 3.2-5.2 Globulin 2.6 g/dL 2-4 Albumin/Globulin Ratio 1.5 1-3 Total Bilirubin 0.30 mg/dL 0.2-1.0 Alkaline Phosphatase 81 U/L 34-104 Alt 15 U/L 7-52 Ast 14 U/L 13-39 Egfr Non- 92.0 >60 Egfr 111.3 >60 1 Lipid Profile (Trig/Chol/HDL) 04/20/2018 Triglycerides 131 mg/dL 2 Cholesterol 171 mg/dL 3 HDL Cholesterol 42.2 mg/dL 4 LDL Cholesterol 103 mg/dL 5 Laboratory test finding 04/20/2018 TSH (Thyroid Stim Horm) 4.74 mcIU/mL 0.34-5.60 6 Thyroperoxidase AB 0.81 IU/mL <9 7 T3 Total 189 ng/dL High 87-178 8 Free T4 (Free Thyroxine) 0.76 ng/dL 0.61-1.12 9 Urinalysis Profile 04/10/2018 Urine Color Yellow Urine Appearance Cloudy Urine Specific [place] 1.017 1.010-1.030 Urine pH 5.0 5-9 Urine Urobilinogen Negative Negative Urine Ketones Negative Negative Urine Protein Negative Negative Urine Leukocytes Trace Negative Urine Blood Negative Negative Urine Nitrite Negative Negative Urine Bilirubin Negative Negative Urine Glucose Negative Negative Urine White Blood Cell Trace(0-5/hpf) Absent Urine Red Blood Cell 1+(3-5/hpf) Absent Urine Bacteria Absent Absent Urine Squamous Epithelial Cell Present Absent Comp Metabolic Panel 04/10/2018 Sodium 137 mmol/L Low 139-145 Potassium 4.1 mmol/L 3.5-5.0 Chloride 105 mmol/L 101-111 Co2 Carbon Dioxide 25 mmol/L 22-32 Anion Gap 7 mmol/L 2-11 Glucose 88 mg/dL 70-100 Blood Urea Nitrogen 13 mg/dL 6-24 Creatinine 1.05 mg/dL High 0.51-0.95 BUN/Creatinine Ratio 12.4 8-20 Calcium 9.3 mg/dL 8.6-10.3 Total Protein 6.8 g/dL 6.4-8.9 Albumin 3.9 g/dL 3.2-5.2 Globulin 2.9 g/dL 2-4 Albumin/Globulin Ratio 1.3 1-3 Total Bilirubin 0.20 mg/dL 0.2-1.0 Alkaline Phosphatase 82 U/L 34-104 Alt 17 U/L 7-52 Ast 16 U/L 13-39 Egfr Non- 62.4 >60 Egfr 80.3 >60 10 Laboratory test finding 04/10/2018 Lipase < 10 U/L Low 11.0-82.0 C Reactive Protein 8.48 mg/L High < 5.00 11 HCG < 0.60 mIU/mL 12 CBC Auto Diff 04/10/2018 White Blood Count 11.6 10^3/uL High 3.5-10.8 Red Blood Count 4.12 10^6/uL 4.00-5.40 Hemoglobin 9.9 g/dL Low 12.0-16.0 Hematocrit 31 % Low 35-47 Mean Corpuscular Volume 75 fL Low 80-97 Mean Corpuscular Hemoglobin 24 pg Low 27-31 Mean Corpuscular HGB Conc 32 g/dL 31-36 Red Cell Distribution Width 17 % High 10.5-15 Platelet Count 248 10^3/uL 150-450 Mean Platelet Volume 8.2 um3 7.4-10.4 Abs Neutrophils 8.3 10^3/uL High 1.5-7.7 Abs Lymphocytes 2.4 10^3/uL 1.0-4.8 Abs Monocytes 0.6 10^3/uL 0-0.8 Abs Eosinophils 0.2 10^3/uL 0-0.6 Abs Basophils 0 10^3/uL 0-0.2 Abs Nucleated RBC 0 10^3/uL Granulocyte % 71.6 % 38-83 Lymphocyte % 20.9 % Low 25-47 Monocyte % 5.3 % 0-7 Eosinophil % 1.9 % 0-6 Basophil % 0.3 % 0-2 Nucleated Red Blood Cells % 0 Urine Culture And Sensitivities 04/10/2018 Urine Culture SEE RESULT BELOW 13 Urinalysis Profile 11/29/2016 Urine Color Yellow Urine Appearance Cloudy Urine Specific [place] 1.023 1.010-1.030 Urine pH 5.0 5-9 Urine Urobilinogen Negative Negative Urine Ketones Negative Negative Urine Protein Negative Negative Urine Leukocytes 3+ Negative Urine Blood Negative Negative Urine Nitrite Negative Negative Urine Bilirubin Negative Negative Urine Glucose Negative Negative Urine White Blood Cell 2+(11-20/hpf) Absent Urine Red Blood Cell 1+(3-5/hpf) Absent Urine Bacteria Absent Absent Urine Squamous Epithelial Cell Present Absent CBC Auto Diff 11/29/2016 White Blood Count 13.4 10^3/uL High 3.5-10.8 Red Blood Count 4.24 10^6/uL 4.0-5.4 Hemoglobin 9.7 g/dL Low 12.0-16.0 Hematocrit 32 % Low 35-47 Mean Corpuscular Volume 75 fL Low 80-97 Mean Corpuscular Hemoglobin 23 pg Low 27-31 Mean Corpuscular HGB Conc 31 g/dL 31-36 Red Cell Distribution Width 17 % High 10.5-15 Platelet Count 248 10^3/uL 150-450 Mean Platelet Volume 9 um3 7.4-10.4 Abs Neutrophils 10.1 10^3/uL High 1.5-7.7 Abs Lymphocytes 2.2 10^3/uL 1.0-4.8 Abs Monocytes 0.8 10^3/uL 0-0.8 Abs Eosinophils 0.2 10^3/uL 0-0.6 Abs Basophils 0.1 10^3/uL 0-0.2 Abs Nucleated RBC 0.01 10^3/uL Granulocyte % 75.8 % 38-83 Lymphocyte % 16.2 % Low 25-47 Monocyte % 5.7 % 1-9 Eosinophil % 1.6 % 0-6 Basophil % 0.7 % 0-2 Nucleated Red Blood Cells % 0.1 Laboratory test finding 11/29/2016 Lipase < 10 U/L Low 11.0-82.0 C Reactive Protein 12.30 mg/L High < 5.00 14 Lactic Acid 0.9 mmol/L 0.5-2.0 15 Comp Metabolic Panel 11/29/2016 Sodium 134 mmol/L 133-145 Potassium 3.8 mmol/L 3.5-5.0 Chloride 104 mmol/L 101-111 Co2 Carbon Dioxide 23 mmol/L 22-32 Anion Gap 7 mmol/L 2-11 Glucose 87 mg/dL 70-100 Blood Urea Nitrogen 16 mg/dL 6-24 Creatinine 0.75 mg/dL 0.51-0.95 BUN/Creatinine Ratio 21.3 High 8-20 Calcium 9.0 mg/dL 8.6-10.3 Total Protein 7.0 g/dL 6.4-8.9 Albumin 3.9 g/dL 3.2-5.2 Globulin 3.1 g/dL 2-4 Albumin/Globulin Ratio 1.3 1-3 Total Bilirubin 0.20 mg/dL 0.2-1.0 Alkaline Phosphatase 73 U/L 34-104 Alt 14 U/L 7-52 Ast 11 U/L Low 13-39 Egfr Non- 93.4 >60 Egfr 120.1 >60 16 Laboratory test finding 03/18/2016 Varicella Zoster Igg AB <pending> Varicella Zoster Igg AB 03/18/2016 Varicella-Zoster IgG Negative 17, 18 Antibody Varicella IgG Antibody Index 0.7 17, 19 Laboratory test finding 12/31/2015 Strep Screen NEG Neg Laboratory test finding 08/28/2015 Cytology SEE RESULT BELOW 20 Urine DIP 08/28/2015 Specific [place] 1.015 1.01-1.02 Urine pH 7 High 5-6 Leukocytes TRACE Neg Urine Nitrites NEG Neg Total Protein, Urine NEG Neg Urine Glucose NORM Norm Urine Ketones NEG Neg Urobilinogen NORM Norm Urine Bilirubin NEG Neg Urine Blood 250 MENSE High Neg Urine DIP 12/09/2013 Leukocytes TRACE Neg Urine Nitrites NEG Neg Urine pH 5 5-6 Total Protein, Urine NEG Neg Urine Glucose NORM Norm Urine Ketones NEG Neg Urobilinogen NORM Norm Urine Bilirubin NEG Neg Urine Blood NEG Neg Specific [place] N/A Low 1.01-1.02 1 Because ethnic data is not always readily available, this report includes an eGFR for both -Americans and non- Americans. The National Kidney Disease Education Program (NKDEP) does not endorse the use of the MDRD equation for patients that are not between the ages of 18 and 70, are , have extremes of body size, muscle mass, or nutritional status, or are non- or non-. According to the National Kidney Foundation, irrespective of diagnosis, the stage of the disease is based on the level of kidney function: Stage Description GFR(mL/min/1.73 m(2)) 1 Kidney damage with normal or decreased GFR 90 2 Kidney damage with mild decrease in GFR 60-89 3 Moderate decrease in GFR 30-59 4 Severe decrease in GFR 15-29 5 Kidney failure <15 (or dialysis) 2 Desirable: <150 Borderline High: 150-199 High: 200-499 Very High: >500 3 Desirable: <200 Borderline High: 200-239 High: >239 4 Low: <40 Desirable: 40-60 High: >60 5 Desirable: <100 Near Optimal: 100-129 Borderline High: 130-159 High: 160-189 Very High: >189 6 FASTING [id number] FASTING [id number] FASTING [id number] FASTING [id number] 10 Because ethnic data is not always readily available, this report includes an eGFR for both -Americans and non- Americans. The National Kidney Disease Education Program (NKDEP) does not endorse the use of the MDRD equation for patients that are not between the ages of 18 and 70, are , have extremes of body size, muscle mass, or nutritional status, or are non- or non-. According to the National Kidney Foundation, irrespective of diagnosis, the stage of the disease is based on the level of kidney function: Stage Description GFR(mL/min/1.73 m(2)) 1 Kidney damage with normal or decreased GFR 90 2 Kidney damage with mild decrease in GFR 60-89 3 Moderate decrease in GFR 30-59 4 Severe decrease in GFR 15-29 5 Kidney failure <15 (or dialysis) 11 Acute inflammation: >10.00 12 <5.0 Negative 5.0 - 25.0 Indeterminate (Repeat testing recommended after 72 hours) >25.0 Positive Perimenopausal women can display HCG levels of up to 20 mIU/mL 13 SEE RESULT BELOW Name: ANDRADE ELDRIDGE : [address]: Winston Cummins MD Acct: [id number] Unit: [id number] AGE: 28 Location: ED Re04/10/18 SEX: F Status: DEP ER SPEC: [id number] HEIDY: 04/10/18-2099 [facility] DR: Winston Cummins MD REQ: [id number] RECD: 04/10/18 STATUS: MAGAN LEPE DR: Megan Hinkle [employer] _ SOURCE: URINE SPDESC: ORDERED: Urine Culture Procedure Result Reported Site Urine Culture Final 04/12/18- 0908 ML No growth of clinically significant organisms * ML - Main Lab . END OF REPORT DEPARTMENT OF PATHOLOGY, [address] [place] [address] Shaun Quezada M.D. Director [facility] # [id number] 14 Acute inflammation: >10.00 15 [facility] Severe Sepsis and Septic Shock Management Bundle Measure requires all lactic acids initially measuring >2.0 mmol/L be repeated. 16 Because ethnic data is not always readily available, this report includes an eGFR for both -Americans and non- Americans. The National Kidney Disease Education Program (NKDEP) does not endorse the use of the MDRD equation for patients that are not between the ages of 18 and 70, are , have extremes of body size, muscle mass, or nutritional status, or are non- or non-. According to the National Kidney Foundation, irrespective of diagnosis, the stage of the disease is based on the level of kidney function: Stage Description GFR(mL/min/1.73 m(2)) 1 Kidney damage with normal or decreased GFR 90 2 Kidney damage with mild decrease in GFR 60-89 3 Moderate decrease in GFR 30-59 4 Severe decrease in GFR 15-29 5 Kidney failure <15 (or dialysis) 17 [facility] [id number] 18 REFERENCE VALUE Vaccinated: Positive (>=1.1 AI) Unvaccinated: Negative (<=0.8 AI) 19 Test Performed by: [facility] [place] [address] Underwear Trimmer: Zia Miller II, M.D., Ph.D. 20 SEE RESULT BELOW Name: ANDRADE ELDRIDGE : [address]: Shira Oconnell NP Acct: [id number] Unit: [id number] AGE: 25 Location: [facility] Re08/28/15 SEX: F Status: REG REF SPEC: [id number] HEIDY: 08/28/15-6545 [facility] DR: Shira Oconnell NP REQ: [id number] RECD: 08/28/15 STATUS: SOUT _ ORDERED: IMAGE ANALYSIS, HPV 16/18 GENE FINAL DIAGNOSIS Negative for Intraepithelial lesion or Malignancy A. Ectocervical/Endocervical Specimen Adequacy: Satisfactory of evaluation Transformation zone component identified Predominance of white blood cells Patient Information: HPV: Thin Layer Pap Test w/reflex to high risk HPV RNA testing when ASCUS HPV 16/18 Genotype for HPV pos Actual Specimen Date: 08/28/15 Last Menstrual Date: 08/07/15 Other Pertinent History: first pap here Signed (signature on file) Delvin Hardy 09/01/15 0917 This Pap test was evaluated with the assistance of the LetPrep Test Imaging System. Due to cytologic findings at the value stream leader microscope, comprehensive manual rescreening by a Financial Services Associate may be required. The Pap Smear is a screening test designed to aid in the detection of premalignant and malignant conditions of the uterine cervix. It is not a diagnostic procedure and should not be used as the sole means of detecting cervical cancer. Both false- positive and false- negative reports do occur. Depending on your risk status, a Pap smear should be obtained and evaluated every 1-3 years. END OF REPORT * ML=Testing performed at Main Lab DEPARTMENT OF PATHOLOGY, [address] [place] [address] Shaun Quezada M.D. Director [facility] # [id number] Procedures Description No Information Encounters Type Date Location Provider CPT E/M Dx Office Visit 04/20/2018 9:00a [place] [address] Z00.00 N92.6 E66.9 Office Visit 02/20/2018 9:45a [place] [address] H92.03 Office Visit 08/30/2017 9:30a Main Office PRESLEY Choudhury 95714 F32.89 Office Visit 04/21/2017 11:00a Main Office PRESLEY Choudhury 20197 F32.89 F90.0 Office Visit 03/21/2017 8:00a Main Office PRESLEY Choudhury 28303 Z00.00 F41.9 Z11.1 Z23 Office Visit 07/08/2016 2:15p Main Office dArián Reynosochance COLEMAN, [facility] 26167 A09 Office Visit 03/02/2016 8:00a Main Office Shira Oconnell, [facility] 36500 Z00.00 Z11.1 Office Visit 12/31/2015 2:45p [place] [address] J06.9 Office Visit 08/28/2015 2:30p Main Office Shira Oconnell, [facility] 42443 N92.6 Z23 Office Visit 05/29/2014 11:30a Main Office Janis Gill M.D. 17986 919.4 Office Visit 12/09/2013 8:00a Main Office Shira Oconnell, [facility] 52320 V70.0 691.8 Plan of Care 05/25/2018 - Megan Hinkle, NPD64.9 Anemia, unspecifiedComments:No acute concerns today.I suspect this is due to her period. Will obtain labs for further evalEducated on new/worsening symptoms and when to call/return. Patient stated understanding and agrees to planN92.6 Irregular menstruation, unspecifiedNew Medication:Ortho Tri-Cyclen (28) 0.18 /0.215/0.25 mg-35 mcg0.18Comments:No acute concerns today.Patient reports she was on ortho tri cyclen previously and would like to restart same. In office completed and negativeDiscussed med, action, side effects, proper usePatient to follow up in one month for reassessment and pap at that time.Follow up:follow up one month for bc and pap
[2018-06-06] MEDS ORDERED: Tobramycin 0.3% OPHTH.SOL* 5 ML BOT (regular eye drops) RIGHT EYE ONE (22:15)
[2018-06-06] MEDS ORDERED: Tobramycin 0.3% OPHTH.SOL* 5 ML BOT (regular eye drops) RIGHT EYE SCH (23:00)
== END 2018-06-06 22:29 | disposition home or self-care (01) ==
LOC: UCEAST 21:52
DX: H00.022 Hordeolum internum right lower eyelid (principal); Z88.2 Allergy status to sulfonamides; Z87.891 Personal history of nicotine dependence
CPT/HCPCS: 99212; A9270-GY; G0463

== ENCOUNTER 2018-08-02 22:42 | Emergency (ER) | payer BC ==
[2018-08-03] MEDS ORDERED: Ondansetron ODT TAB* 4 MG PO ONE (01:29)
--- NOTE | 2018-08-03 01:35 | RAD ---
EXAM: US Pelvis, Transvaginal CLINICAL HISTORY: 28 years old, female; Pain; Pelvic pain; Patient HX: Known left ov. Cyst. Pain llq w/ nausea; Additional info: Ab pain TECHNIQUE: Real-time transvaginal pelvic ultrasound (complete) with image documentation. Transvaginal imaging was used for better evaluation of the endometrium and adnexa. COMPARISON: A/P WO CT ABD/PEL W/O 04/10/2018 8:20 PM FINDINGS: Uterus/cervix: The uterus is anteverted in orientation. The uterus measures 9.2 x 4.5 x 5.9 cm. Multiple nabothian cysts are seen at the level of the cervix. The endometrial echo measures approximately 8.5 mm in thickness. No myometrial mass. Right ovary: The right ovary measures approximately 1.8 x 1.3 x 1.9 cm. There are no adnexal masses. Normal blood flow. Left ovary: Simple cystic mass is seen in the left adnexa measuring 7.7 x 5.0 x 5.7 cm. Normal left ovary is not identified. Free fluid: There is no free intraperitoneal fluid. Bladder: Bladder cannot be evaluated with this probe. IMPRESSION: Large simple cystic mass in the left adnexa. Enlarged uterus. To contact [facility] with a general question: Operations Center - [phone] For direct physician to physician contact: Physician Hotline - [phone] [facility] ([facility] Facility ID #[id number])
[2018-08-03 01:50] LABS: ABS Basophils 0 10^3/ul (0-0.2); ABS Eosinophils 0.1 10^3/ul (0-0.6); ABS Monocytes 0.4 10^3/ul (0-0.8); ABS Neutrophils 10.1 10^3/ul (1.5-7.7); ABS Nucleated RBC 0 10^3/ul; Eosinophil % 0.6 % (0-6); Hematocrit 36 % (35-47); Hemoglobin 11.1 g/dl (12.0-16.0); Mean Corpuscular HGB Conc 31 g/dl (31-36); Mean Corpuscular Hemoglobin 24 pg (27-31); Mean Corpuscular Volume 78 fL (80-97); Mean Platelet Volume 8.8 um3 (7.4-10.4); Nucleated Red Blood Cells % 0; Platelet Count 273 10^3/ul (150-450); Red Blood Count 4.54 10^6/ul (4.00-5.40); Red Cell Distribution Width 16 % (10.5-15); White Blood Count 12.6 10^3/ul (3.5-10.8)
[2018-08-03 01:51] LABS: EGFR Non-African American 75.5 (>60)
--- NOTE | 2018-08-03 02:09 | ED ---
Nausea/Vomiting/Diarrhea HPI - HPI Summary HPI Summary: Patient with history of large left ovarian cyst diagnosed a few weeks ago with surgery scheduled for August 17 complains of persistent, nonprogressive left lower quadrant pain 3 weeks with sudden onset N/V x 2 and very minimal vaginal bleeding starting today. Abdominal pain has been consistent at 2-3/10. Denies increase in left lower quadrant pain. States she had been told to come to the ED for any worsening symptoms including increasing pain, N/V, fever. Denies fever, cough, sore throat, CP, SOB, change in abdominal pain, change in urine, change in BM. Medical history as migraines, ovarian cyst. - History of Current Complaint Chief Complaint: EDAbdPain Stated Complaint: ABD PAIN/NAUSEA Time Seen by Provider: 08/03/18 01:16 Hx Obtained From: Patient Hx Last Menstrual Period: NOW Onset/Duration: Sudden Onset Timing: Constant Severity Initially: Mild Severity Currently: Mild Pain Intensity: 3 Pain Scale Used: 0-10 Numeric Location: Discrete At: LLQ Character: Cramping Aggravating Factor(s): Nothing Alleviating Factor(s): Nothing - Allergies/Home Medications Allergies/Adverse Reactions: Allergies Allergy/AdvReac Type Severity Reaction Status Date / Time Sulfa (Sulfonamide Allergy Rash Verified 08/03/18 01:29 Antibiotics) PMH/Surg Hx/FS Hx/Imm Hx Endocrine/Hematology History: Denies: Hx Anticoagulant Therapy, Hx Diabetes, Hx Thyroid Disease Cardiovascular History: Denies: Hx Auto Implanted Cardiovert Defib, Hx Congestive Heart Failure, Hx Deep Vein Thrombosis, Hx Hypertension, Hx Myocardial Infarction, Hx Pacemaker/ ICD Respiratory History: Denies: Hx Asthma, Hx Chronic Obstructive Pulmonary Disease (COPD), Hx Lung Cancer, Hx Pneumonia, Hx Pulmonary Embolism GI History: Denies: Hx Gall Bladder Disease, Hx Gastrointestinal Bleed, Hx Ulcer, Hx Urosepsis History: Denies: Hx Kidney Stones, Hx Renal Disease Neurological History: Denies: Hx Dementia, Hx Migraine, Hx Seizures, Hx Transient Ischemic Attacks (TIA) Psychiatric History: Denies: Hx Anxiety, Hx Depression, Hx Schizophrenia, Hx Bipolar Disorder - Surgical History Surgery Procedure, Year, and Place: t & A; ear tubes multiple times Infectious Disease History: No Infectious Disease History: Denies: Hx Hepatitis, Hx Human Immunodeficiency Virus (HIV), History Other Infectious Disease, Traveled Outside the [place] in Last 30 Days - Family History Known Family History: Positive: Cardiac Disease, Hypertension, Other - kidney stones - Social History Alcohol Use: None Substance Use Type: Reports: None Hx Tobacco Use: Yes - quit 2011 Smoking Status (MU): Former Smoker Type: Cigarettes Review of Systems Constitutional: Negative Eyes: Negative ENT: Negative Cardiovascular: Negative Respiratory: Negative Positive: Abdominal Pain, Vomiting, Nausea Genitourinary: Negative Musculoskeletal: Negative Skin: Negative Neurological: Negative Psychological: Normal All Other Systems Reviewed And Are Negative: Yes Physical Exam - Summary Physical Exam Summary: Tenderness to palpation left side abdomen. Abdominal exam otherwise unremarkable. Triage Information Reviewed: Yes Vital Signs On Initial Exam: Initial Vitals Temp Pulse Resp BP Pulse Ox 97.8 F 92 16 126/95 100 08/02/18 22:44 08/02/18 22:44 08/02/18 22:44 08/02/18 22:44 08/02/18 22:44 Vital Signs Reviewed: Yes Appearance: Positive: Well-Appearing Skin: Positive: Warm Head/Face: Positive: Normal Head/Face Inspection Eyes: Positive: Normal Neck: Positive: Supple Respiratory/Lung Sounds: Positive: Clear to Auscultation Cardiovascular: Positive: Normal Abdomen Description: Positive: Other: Musculoskeletal: Positive: Normal Neurological: Positive: Normal Psychiatric: Positive: Normal AVPU Assessment: Alert - [place] Coma Scale Best Eye Response: 4 - Spontaneous Best Motor Response: 6 - Obeys Commands Best Verbal Response: 5 - Oriented Coma Scale Total: 15 Diagnostics - Vital Signs Vital Signs Temp Pulse Resp BP Pulse Ox 08/02/18 22:44 97.8 F 92 16 126/95 100 - Laboratory Lab Results: Lab Results 08/03/18 08/03/18 Range/Units 01:23 01:23 WBC 12.6 H (3.5-10.8) 10^3/ul RBC 4.54 (4.00-5.40) 10^6/ul Hgb 11.1 L (12.0-16.0) g/dl Hct 36 (35-47) % MCV 78 L (80-97) fL MCH 24 L (27-31) pg MCHC 31 (31-36) g/dl RDW 16 H (10.5-15) % Plt Count 273 (150-450) 10^3/ul MPV 8.8 (7.4-10.4) um3 Neut % (Auto) 79.8 (38-83) % Lymph % (Auto) 16.0 L (25-47) % [place] % (Auto) 3.4 (0-7) % Eos % (Auto) 0.6 (0-6) % Baso % (Auto) 0.2 (0-2) % Absolute Neuts (auto) 10.1 H (1.5-7.7) 10^3/ul Absolute Lymphs (auto) 2.0 (1.0-4.8) 10^3/ul Absolute Monos (auto) 0.4 (0-0.8) 10^3/ul Absolute Eos (auto) 0.1 (0-0.6) 10^3/ul Absolute Basos (auto) 0 (0-0.2) 10^3/ul Absolute Nucleated RBC 0 10^3/ul Nucleated RBC % 0 Sodium 137 (135-145) mmol/L Potassium 4.4 (3.5-5.0) mmol/L Chloride 105 (101-111) mmol/L Carbon Dioxide 25 (22-32) mmol/L Anion Gap 7 (2-11) mmol/L BUN 15 (6-24) mg/dL Creatinine 0.89 (0.51-0.95) mg/dL Est GFR ( Amer) 91.4 (>60) Est GFR (Non-Af Amer) 75.5 (>60) BUN/Creatinine Ratio 16.9 (8-20) Glucose 105 H (70-100) mg/dL Calcium 9.6 (8.6-10.3) mg/dL Total Bilirubin 0.20 (0.2-1.0) mg/dL AST 11 L (13-39) U/L ALT 12 (7-52) U/L Alkaline Phosphatase 64 (34-104) U/L C-Reactive Protein 13.97 H (<8.01) mg/L Total Protein 7.0 (6.4-8.9) g/dL Albumin 3.9 (3.2-5.2) g/dL Globulin 3.1 (2-4) g/dL Albumin/Globulin Ratio 1.3 (1-3) Lipase < 10 L (11.0-82.0) U/L Beta HCG, Quant < 0.60 mIU/mL Result Diagrams: 08/03/18 01:23 08/03/18 01:23 Lab Statement: Any lab studies that have been ordered have been reviewed, and results considered in the medical decision making process. - Ultrasound No standard instances Ultrasound Interpretation: No Acute Changes Ultrasound Interpretation Completed By: Radiologist Naus/Vom/Diarrhea Course/Dx - Course Course Of Treatment: Patient with history of large left ovarian cyst diagnosed a few weeks ago with surgery scheduled for August 17 complains of persistent, nonprogressive left lower quadrant pain 3 weeks with sudden onset N/V x 2 and very minimal vaginal bleeding starting today. Abdominal pain has been consistent at 2-01/06. Denies increase in left lower quadrant pain. States she had been told to come to the ED for any worsening symptoms including increasing pain, N/V, fever. Denies fever, cough, sore throat, CP, SOB, change in abdominal pain, change in urine, change in BM. Medical history as migraines, ovarian cyst. Physical exam:Tenderness to palpation left side abdomen. Abdominal exam otherwise unremarkable. Vital signs unremarkable. WBC 12.6. Ultrasound TV indicates left cyst approximate the same size as prior imaging on 07/12/18 however radiologist cannot rule out torsion. Radiologist finding was left normal left ovary not identified. Patient has appointment with Dr. Montes De Oca for surgery to remove left cyst on 08/17/18. Patient sitting comfortably in exam room, no obvious distress. Mild tenderness to palpation in left lower quadrant on physical exam. Discussed today's ultrasound image report by phone with original radiologist who stated after further review still could not rule out torsion or definitively identify a normal left ovary. Discussed patient with Dr. Wong manager division for Dr. Montes De [facility], who recommended the patient call clinic in the morning if pain or N/V persisted or worsened. Rx for Phenergan. - Differential Dx/Diagnosis Provider Diagnoses: Nausea vomiting. Left ovarian cyst Is Visit Related: No Condition At Discharge: Stable Discharge - Sign-Out/Discharge Documenting (check all that apply): Patient Departure - Discharge Plan Condition: Stable Disposition: HOME Prescriptions: Promethazine TAB* [Phenergan TAB*] 25 mg PO Q8H PRN 5 Days #15 tab PRN Reason: Nausea Patient Education Materials: Ovarian Cyst (ED), Acute Nausea and Vomiting (ED) Forms: *Work Release Referrals: Megan Hinkle NP [Primary Care Provider] - Additional Instructions: Follow-up with your [facility] clinic tomorrow if pain increases. Return to the ED for any new or worsening symptoms. - Billing Disposition and Condition Condition: STABLE Disposition: Home
[2018-08-03] MEDS ORDERED: Metoclopramide TAB* 10 MG PO ONE (02:59)
[2018-08-03 04:42] VITALS: BP 150/90
== END 2018-08-03 04:35 | disposition home or self-care (01) ==
LOC: ED 22:42
DX: N83.202 Unspecified ovarian cyst, left side (principal); R11.2 Nausea with vomiting, unspecified; N93.9 Abnormal uterine and vaginal bleeding, unspecified; Z87.891 Personal history of nicotine dependence; N85.2 Hypertrophy of uterus
CPT/HCPCS: 36415; 76830; 80053; 83690; 84702; 85025; 86140; 99283; A9270-GY

== ENCOUNTER → 2018-08-17 11:43 | Day surgery (SDC) | payer BC ==
[~2018-08-17 11:43] MED LIST: Atracurium* 10 MG/ML 10 ML VIAL ONE; Buffered Lidocaine 0.9% SYRIN* 5 ML/SYR SYRINGE INTRADERM ONE; Bupivacaine 0.25% W/EPI* 10 ML SDV ONE; Dexamethasone TAB* 4 MG ONE; Dexamethasone TAB* 4 MG PO ONE; DiMENhydriNATE IV* 50 MG/ML VIAL IV PUSH PRN; Famotidine IV* 10 MG/ML 2 ML (20 mg) IV ONE; Famotidine IV* 10 MG/ML 2 ML (20 mg) ONE; Glycopyrrolate IV* 0.2 MG/ML 1 ML VIAL ONE; KETAMINE HCL* 50 MG/ML 10 ML VIAL ONE; Ketorolac INJ* 30 MG/ML 1 ML VIAL ONE; Lidocaine 2% PF * 5 ML VIAL ONE; Midazolam* 1 MG/ML 5 ML VIAL (5 MG) ONE; Morphine VIAL* 10 MG/ML 1 ML VIAL ONE; Morphine VIAL* 4 MG/ML VIAL (1 ml vial) IV PRN; Naloxone* 0.4 MG/ML 1 ML VIAL IV PRN; Neostigmine Methylsulfate* 1 MG/ML 10 ML VIAL (1 mg/ml) ONE; Ondansetron ODT TAB* 4 MG ONE; Ondansetron TAB* 4 MG PO ONE; PROCHLORPERAZINE INJ 5 MG/ML 2 ML VIAL IV PRN; PROCHLORPERAZINE INJ 5 MG/ML 2 ML VIAL ONE; Propofol* 10 MG/ML 20 ML BTL IV PUSH ONE; Scopolamine 1.5 mg* PATCH ONE; Scopolamine 1.5 mg* PATCH TRANSDERM ONE; Scopolamine PATCH Remove* 1 NOTE MISC PATCH OFF ONE; fentaNYL* 50 MCG/ML 2 ML VIAL (100 MCG VIAL) IV PRN; fentaNYL* 50 MCG/ML 2 ML VIAL (100 MCG VIAL) ONE; oxyCODONE/Acetamin 5/325 MG* TAB PO PRN
[2018-08-17 16:11] VITALS: BP 122/54
--- NOTE | 2018-08-18 08:36 | OP ---
OPERATIVE REPORT: DATE OF OPERATION: 08/17/18 DATE OF : 89 SURGEON: Ramos Valverde MD GROUNDSKEEPER SUPERVISOR: Dr. Wong. ANESTHESIA: General endotracheal tube. PRE-OP DIAGNOSES: Left ovarian cyst and pelvic pain. POST-OP DIAGNOSES: Left paratubal cyst and pelvic pain OPERATIVE PROCEDURE: Laparoscopic left paratubal cystectomy. ESTIMATED BLOOD LOSS: Minimal. SPECIMEN: Includes paratubal cyst. FINDINGS: On laparoscopy, anterior bladder flap appeared normal. The cul-de-sac appeared normal. T he right tube and ovary appeared normal. The left ovary appeared normal. The left tube had a large 8-cm cyst along the tube that this tube was splayed out across, but no adhesions. DESCRIPTION OF PROCEDURE: The patient identified, procedure identified as a left paratubal cystectom y. The patient was taken to the operating room, prepped and draped in the usual fashion in the dorsa l lithotomy position under general anesthesia. A small infraumbilical incision was made and a Veress needle was inserted through this. The abdomen was insufflated to 15 mmHg. The Veress needle was re moved and the trocar was inserted using the Visiport without difficulty. The above findings were not ed. A second trocar was put in place on the left abdominal sidewall approximately 8-cm from the umbi licus under direct visualization. A second trocar was placed also on the right abdominal sidewall ap proximately 8 cm from the umbilicus under direct visualization. Using unipolar cautery, the paratuba l cyst was incised. Clear fluid was obtained. The cyst wall dissected easily from the fallopian tub e and mesosalpinx and the cyst was in total excised. Good hemostasis was verified. The tube was brou ght out through one of the 5-mm ports. Good hemostasis again verified. The sites were inspected. T he abdomen was deflated of the CO2. The incisions were closed using skin glue, and sponge and sponge stick was removed from the vagina that was used for manipulation. All sponge and instrument counts were correct. The patient returned to recovery room in stable condition. [id number]/[facility] #: [id number]
== END | disposition home or self-care (01) ==
LOC: OR 11:43
PROVIDERS: ATTEND Obstetrics & Gynecology
DX: N83.8 Other noninflammatory disorders of ovary, fallopian tube and broad ligament (principal); R10.2 Pelvic and perineal pain; N94.89 Other specified conditions associated with female genital organs and menstrual cycle; F41.8 Other specified anxiety disorders; Z87.891 Personal history of nicotine dependence
CPT/HCPCS: 81025; 88305; A9270-GY; J0780; J1885; J2250; J2270; J2704; J2710; J3010; J8540

== ENCOUNTER 2018-09-08 21:18 | Emergency (ER) | payer BC ==
[2018-09-08 21:29] VITALS: BP 142/68
[2018-09-08] MEDS ORDERED: Tobramycin 0.3% OPHTH.SOL* 5 ML BOT (regular eye drops) LEFT EYE ONE (21:35)
--- NOTE | 2018-09-08 21:39 | UC ---
Eye Complaint HPI - HPI Summary HPI Summary: 28 year old woman here with a chief complaint of left lower eyelid swelling. Couple days getting worse. He tried some warm compresses is not really helping. SHE gets crusting. No fevers or chills no runny nose no sore throat. No change in vision. - History of Current Complaint Chief Complaint: UCEye Stated Complaint: EYE IRRITATION Time Seen by Provider: 09/08/18 21:26 Hx Last Menstrual Period: 08/13/2018 Pain Intensity: 1 - Allergies/Home Medications Allergies/Adverse Reactions: Allergies Allergy/AdvReac Type Severity Reaction Status Date / Time Sulfa (Sulfonamide Allergy Unknown Rash Verified 08/03/18 08:29 Antibiotics) PMH/Surg Hx/FS Hx/Imm Hx Previously Healthy: Yes Other History Of: Negative For: HIV, Hepatitis B, Hepatitis C, Anticoagulant Therapy - Surgical History Surgical History: Yes Surgery Procedure, Year, and Place: t & A; ear tubes multiple times - Family History Known Family History: Positive: Cardiac Disease, Hypertension, Other - kidney stones - Social History Alcohol Use: None Substance Use Type: None Smoking Status (MU): Former Smoker Type: Cigarettes When Did the Patient Quit Smoking/Using Tobacco: 5 yrs - Immunization History Most Recent Influenza Vaccination: 2013/2014 Review of Systems All Other Systems Reviewed And Are Negative: Yes Constitutional: Positive: Negative Skin: Positive: Negative Eyes: Positive: Other - SEE HPI ENT: Positive: Negative Respiratory: Positive: Negative Cardiovascular: Positive: Negative Gastrointestinal: Positive: Negative Motor: Positive: Negative Neurovascular: Positive: Negative Musculoskeletal: Positive: Negative Neurological: Positive: Negative Psychological: Positive: Negative Is Patient Immunocompromised?: No Physical Exam Triage Information Reviewed: Yes Appearance: Well-Appearing, No Pain Distress, Well-Nourished Vital Signs: Initial Vital Signs Temp 98.5 F 09/08/18 21:23 Pulse 79 09/08/18 21:23 Resp 16 09/08/18 21:23 BP 142/68 09/08/18 21:23 Pulse Ox 98 09/08/18 21:23 Vital Signs Reviewed: Yes Eyes: Positive: Conjunctiva Inflamed, Discharge, Other: - Swelling lower eyelid on the left lateral side. Consistent with a stye. ENT: Positive: Normal ENT inspection, Pharynx normal. Negative: Nasal congestion, Nasal drainage Neck exam: Normal Neck: Positive: Supple Respiratory: Positive: No respiratory distress Musculoskeletal Exam: Normal Musculoskeletal: Positive: Strength Intact, ROM Intact Neurological Exam: Normal Neurological: Positive: Alert, Muscle Tone Normal Psychological Exam: Normal Psychological: Positive: Age Appropriate Behavior Skin Exam: Normal Eye Complaint Course/Dx - Differential Dx/Diagnosis Provider Diagnoses: LEFT STYE Discharge - Sign-Out/Discharge Documenting (check all that apply): Patient Departure All imaging exams completed and their final reports reviewed: No Studies - Discharge Plan Condition: Stable Disposition: HOME Patient Education Materials: Jos (ED) Referrals: Megan Hinkle NP [Primary Care Provider] - Additional Instructions: FOLLOW UP WITH YOUR DOCTOR IF NOT COMPLETELY IMPROVED. GET RECHECKED FOR ANY WORSENING OF YOUR CONDITION OR QUESTIONS OR CONCERNS. - Billing Disposition and Condition Condition: STABLE Disposition: Home
== END 2018-09-08 21:48 | disposition home or self-care (01) ==
LOC: UCEAST 21:18
DX: H00.015 Hordeolum externum left lower eyelid (principal); Z88.2 Allergy status to sulfonamides; Z87.891 Personal history of nicotine dependence
CPT/HCPCS: 99212; A9270-GY; G0463

== ENCOUNTER 2019-01-04 07:55 | Emergency (ER) | payer BC ==
--- NOTE | 2019-01-04 08:09 | ED ---
Nausea/Vomiting/Diarrhea HPI - HPI Summary HPI Summary: Patient is a 28-year-old female who presents to the ED for vomiting and diarrhea that started this evening. 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 Patient states she has vomited twice and has had 2 episodes of diarrhea. She denies any sick contacts. Denies passing blood in her stool or vomit. Also notes fever and chills. No relevant past medical history. Denies recent antibiotic use. Symptoms are moderate in severity. No current modifying factors. - History of Current Complaint Chief Complaint: EDNauseaVomitDiarrh Stated Complaint: VOMITTING PER PT Time Seen by Provider: 01/04/19 08:03 Hx Obtained From: Patient Hx Last Menstrual Period: 08/13/2018 Pain Intensity: 2 - Allergies/Home Medications Allergies/Adverse Reactions: Allergies Allergy/AdvReac Type Severity Reaction Status Date / Time Sulfa (Sulfonamide Allergy Unknown Rash Verified 01/04/19 07:59 Antibiotics) Home Medications: Home Medications Norgestimate-Ethinyl Estradiol [Tri-Linyah Tablet] 1 tab PO DAILY 01/04/19 [ History Confirmed 01/04/19] PMH/Surg Hx/FS Hx/Imm Hx Previously Healthy: Yes Endocrine/Hematology History: Reports: Hx Anemia - on ferrous sulfate Denies: Hx Anticoagulant Therapy, Hx Diabetes, Hx Thyroid Disease Cardiovascular History: Denies: Hx Auto Implanted Cardiovert Defib, Hx Congestive Heart Failure, Hx Deep Vein Thrombosis, Hx Hypertension, Hx Myocardial Infarction, Hx Pacemaker/ ICD Respiratory History: Denies: Hx Asthma, Hx Chronic Obstructive Pulmonary Disease (COPD), Hx Lung Cancer, Hx Pneumonia, Hx Pulmonary Embolism GI History: Denies: Hx Gall Bladder Disease, Hx Gastrointestinal Bleed, Hx Ulcer, Hx Urosepsis History: Reports: Hx Kidney Infection, Hx Kidney Stones - 03/2018 Denies: Hx Renal Disease Sensory History: Reports: Hx Contacts or Glasses - glasses Denies: Hx Hearing Aid Opthamlomology History: Reports: Hx Contacts or Glasses - glasses Neurological History: Reports: Hx Migraine Denies: Hx Dementia, Hx Seizures, Hx Transient Ischemic Attacks (TIA) Psychiatric History: Reports: Hx Anxiety, Hx Depression Denies: Hx Schizophrenia, Hx Bipolar Disorder - Cancer History Hx Chemotherapy: No - Surgical History Surgery Procedure, Year, and Place: t & A; ear tubes multiple times Hx Anesthesia Reactions: No Infectious Disease History: No Infectious Disease History: Denies: Hx Hepatitis, Hx Human Immunodeficiency Virus (HIV), History Other Infectious Disease, Traveled Outside the [place] in Last 30 Days - Family History Known Family History: Positive: Cardiac Disease, Hypertension, Other - kidney stones - Social History Occupation: Employed Full-time Lives: With Family Alcohol Use: None Substance Use Type: Reports: None Hx Tobacco Use: Yes - quit 2011 Smoking Status (MU): Former Smoker Type: Cigarettes Review of Systems Positive: Fever, Chills Eyes: Negative ENT: Negative Cardiovascular: Negative Respiratory: Negative Positive: Abdominal Pain, Vomiting, Diarrhea, Nausea Genitourinary: Negative Skin: Negative Neurological: Negative All Other Systems Reviewed And Are Negative: Yes Physical Exam Triage Information Reviewed: Yes Vital Signs On Initial Exam: Initial Vitals Temp Pulse Resp BP Pulse Ox 97.1 F 79 16 146/93 94 01/04/19 07:57 01/04/19 07:57 01/04/19 07:57 01/04/19 07:57 01/04/19 07:57 Vital Signs Reviewed: Yes Appearance: Positive: Well-Appearing - Pt. lying in bed in NAD. Skin: Positive: Warm, Dry Head/Face: Positive: Normal Head/Face Inspection Eyes: Positive: Normal, EOMI Neck: Positive: Supple Respiratory/Lung Sounds: Positive: Clear to Auscultation, Breath Sounds Present Cardiovascular: Positive: Normal, RRR Abdomen Description: Positive: Other: - Obese. Abs is soft with mild diffuse tenderness on palpation. No rebound tenderness or guarding Neurological: Positive: Normal, CN Intact II-III Psychiatric: Positive: Affect/Mood Appropriate Diagnostics - Vital Signs Vital Signs Temp Pulse Resp BP Pulse Ox 01/04/19 07:57 97.1 F 79 16 146/93 94 - Laboratory Result Diagrams: 01/04/19 08:30 01/04/19 08:34 Lab Statement: Any lab studies that have been ordered have been reviewed, and results considered in the medical decision making process. Naus/Vom/Diarrhea Course/Dx - Course Course Of Treatment: Patient presenting with 1 day of vomiting and diarrhea. She has benign abdominal exam. She is afebrile with stable vital signs. Basic labs obtained. CBC shows mild leukocytosis and chronic anemia. No electrolyte imbalance. Patient feeling better after fluids and Zofran. She is tolerating by mouth fluids. Suspect viral etiology. Prescription for Zofran sent to pharmacy. Advised increase fluids and rest. Work excuse given. Will follow- up with PCP if symptoms persist and return to the ER for uncontrollable vomiting , high fever, abdominal pain or if concerned. Patient understands and agrees with plan. - Differential Dx/Diagnosis Differential Diagnoses - Female: Appendicitis, Bowel Obstruction, Constipation, Diverticulitis, , Gastroenteritis (Viral), Gastroenteritis (Bacterial) Provider Diagnosis: Viral gastroenteritis Condition At Discharge: Improved Discharge - Sign-Out/Discharge Documenting (check all that apply): Patient Departure Patient Received Moderate/Deep Sedation with Procedure: No - Discharge Plan Condition: Improved Disposition: HOME Prescriptions: Ondansetron TAB* [Zofran 4 MG Tab*] 4 mg PO Q6H PRN #12 tab PRN Reason: Nausea Patient Education Materials: Gastroenteritis (ED) Forms: *Work Release Referrals: Megan Hinkle DEAN [Primary Care Provider] - Additional Instructions: Follow up with PCP if symptoms persist Zofran as directed Increase fluids Return to ER if for increased pain, uncontrollable vomiting, high fever or if concerned - Billing Disposition and Condition Condition: IMPROVED Disposition: Home
[2019-01-04] MEDS ORDERED: NS 0.9% 1000 ML** 1,000 ML IV ONE (08:16)
[2019-01-04] MEDS ORDERED: Ondansetron INJ* 2 MG/ML VIAL IV ONE (08:16)
[2019-01-04 08:42] LABS: ABS Basophils 0.1 10^3/ul (0-0.2); ABS Eosinophils 0.1 10^3/ul (0-0.6); ABS Lymphocytes 1.5 10^3/ul (1.0-4.8); ABS Monocytes 0.4 10^3/ul (0-0.8); ABS Neutrophils 9.5 10^3/ul (1.5-7.7); ABS Nucleated RBC 0 10^3/ul; Eosinophil % 0.7 %; Hematocrit 34 % (35-47); Hemoglobin 10.7 g/dl (12.0-16.0); Lymphocyte % 13.3 %; Mean Corpuscular HGB Conc 32 g/dl (31-36); Mean Corpuscular Hemoglobin 26 pg (27-31); Mean Corpuscular Volume 82 fL (80-97); Mean Platelet Volume 8.6 fL (7.4-10.4); Nucleated Red Blood Cells % 0; Platelet Count 271 10^3/ul (150-450); Red Blood Count 4.11 10^6/ul (4.00-5.40); Red Cell Distribution Width 16 % (10.5-15); White Blood Count 11.6 10^3/ul (3.5-10.8)
[2019-01-04 09:00] LABS: ALT 12 U/L (7-52); AST 11 U/L (13-39); Albumin 3.9 g/dL (3.2-5.2); Albumin/Globulin Ratio 1.4 (1-3); Alkaline Phosphatase 65 U/L (34-104); Anion Gap 6 mmol/L (2-11); BUN/Creatinine Ratio 24.1 (8-20); Blood Urea Nitrogen 21 mg/dL (6-24); CO2 Carbon Dioxide 24 mmol/L (22-32); Calcium 9.1 mg/dL (8.6-10.3); Chloride 106 mmol/L (101-111); EGFR African American 93.8 (>60); EGFR Non-African American 77.5 (>60); Globulin 2.8 g/dL (2-4); Glucose 109 mg/dL (70-100); Potassium 4.1 mmol/L (3.5-5.0); Sodium 136 mmol/L (135-145); Total Protein 6.7 g/dL (6.4-8.9)
[2019-01-04 09:05] LABS: HCG Pregnancy < 0.60 mIU/mL
[2019-01-04 10:08] VITALS: BP 136/90
== END 2019-01-04 10:08 | disposition home or self-care (01) ==
LOC: ED 07:55
DX: A08.4 Viral intestinal infection, unspecified (principal); D64.9 Anemia, unspecified; Z87.442 Personal history of urinary calculi; F41.9 Anxiety disorder, unspecified; F32.9 Major depressive disorder, single episode, unspecified; Z87.891 Personal history of nicotine dependence
CPT/HCPCS: 36415; 80053; 83690; 84702; 85025; 96361; 96374; 99282; J2405

== ENCOUNTER 2019-07-31 01:48 | Emergency (ER) | payer BC ==
[2019-07-31] MEDS: Ondansetron TAB* 4 MG PO ONE (04:48)
--- NOTE | 2019-07-31 04:50 | ED ---
GI/ HPI - HPI Summary HPI Summary: Pt is a 29 y/o F presenting to the ED with a chief complaint of GI issues. She states that around , she began experiencing some nausea, dizziness, chills, and diaphoresis. A few hours later, she developed lightheadedness, vomited for about 3 hours intermittently, and she is now experiencing abd pain, headache and sore throat secondary to the vomiting. She denies diarrhea, constipation, or dysuria. 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 - History of Current Complaint Chief Complaint: EDNauseaVomitDiarrh Time Seen by Provider: 07/31/19 04:34 Stated Complaint: VOMITING PER PT Hx Obtained From: Patient Hx Last Menstrual Period: 08/13/2018 Onset/Duration: Started Hours Ago, Still Present Timing: Constant, Lasting Hours Severity: Moderate Current Severity: Severe Pain Intensity: 10 Location of Pain: Diffuse Associated Signs and Symptoms: Positive: Dizziness, Nausea, Vomiting, Diaphoresis, Chills, Abdominal Pain. Negative: Constipation, Diarrhea, Dysuria Aggravating Factor(s): Nothing Alleviating Factor(s): Nothing - Allergy/Home Medications Allergies/Adverse Reactions: Allergies Allergy/AdvReac Type Severity Reaction Status Date / Time Sulfa (Sulfonamide Allergy Unknown Rash Verified 07/31/19 01:56 Antibiotics) PMH/Surg Hx/FS Hx/Imm Hx Previously Healthy: Yes Endocrine/Hematology History: Reports: Hx Anemia - on ferrous sulfate Denies: Hx Anticoagulant Therapy, Hx Diabetes, Hx Thyroid Disease Cardiovascular History: Denies: Hx Auto Implanted Cardiovert Defib, Hx Congestive Heart Failure, Hx Deep Vein Thrombosis, Hx Hypertension, Hx Myocardial Infarction, Hx Pacemaker/ ICD Respiratory History: Denies: Hx Asthma, Hx Chronic Obstructive Pulmonary Disease (COPD), Hx Lung Cancer, Hx Pneumonia, Hx Pulmonary Embolism GI History: Denies: Hx Gall Bladder Disease, Hx Gastrointestinal Bleed, Hx Ulcer, Hx Urosepsis History: Reports: Hx Kidney Infection, Hx Kidney Stones - 03/2018 Denies: Hx Renal Disease Sensory History: Reports: Hx Contacts or Glasses - glasses Denies: Hx Hearing Aid Opthamlomology History: Reports: Hx Contacts or Glasses - glasses Neurological History: Reports: Hx Migraine Denies: Hx Dementia, Hx Seizures, Hx Transient Ischemic Attacks (TIA) Psychiatric History: Reports: Hx Anxiety, Hx Depression Denies: Hx Schizophrenia, Hx Bipolar Disorder - Cancer History Hx Chemotherapy: No - Surgical History Surgery Procedure, Year, and Place: t & A; ear tubes multiple times Hx Anesthesia Reactions: No - Immunization History Date of Influenza Vaccine: 06/2018 Infectious Disease History: No Infectious Disease History: Denies: Hx Hepatitis, Hx Human Immunodeficiency Virus (HIV), History Other Infectious Disease, Traveled Outside the [place] in Last 30 Days - Family History Known Family History: Positive: Cardiac Disease, Hypertension, Other - kidney stones - Social History Alcohol Use: None Hx Substance Use: No Substance Use Type: Reports: None Hx Tobacco Use: Yes - quit 2011 Smoking Status (MU): Former Smoker Type: Cigarettes Review of Systems Positive: Chills, Skin Diaphoresis Positive: Sore Throat Positive: Abdominal Pain, Vomiting, Nausea. Negative: Diarrhea, Other - constipation Negative: dysuria Neurological: Other - lightheadedness Positive: Headache All Other Systems Reviewed And Are Negative: Yes Physical Exam - Summary Physical Exam Summary: Constitutional: Well-developed, Well-nourished, Alert. (-) Distressed Skin: Warm, Dry HENT: Normocephalic; Atraumatic Eyes: Conjunctiva normal Neck: Musculoskeletal ROM normal neck. (-) JVD, (-) Stridor, (-) Tracheal deviation Cardio: Rhythm regular, rate normal, Heart sounds normal; Intact distal pulses; The pedal pulses are 2+ and symmetric. Radial pulses are 2+ and symmetric. (-) Murmur Pulmonary/Chest wall: Effort normal. (-) Respiratory distress, (-) Wheezes, (-) Rales Abd: Soft, mild epigastric tenderness, (-) Distension, (-) Guarding, (-) Rebound Musculoskeletal: (-) Edema Lymph: (-) Cervical adenopathy Neuro: Alert, Oriented x3 Psych: Mood and affect Normal Triage Information Reviewed: Yes Vital Signs On Initial Exam: Initial Vitals Temp Pulse Resp BP Pulse Ox 97.2 F 72 16 140/80 97 07/31/19 01:50 07/31/19 01:50 07/31/19 01:50 07/31/19 01:50 07/31/19 01:50 Vital Signs Reviewed: Yes Procedures - Sedation Patient Received Moderate/Deep Sedation with Procedure: No Diagnostics - Vital Signs Vital Signs Temp Pulse Resp BP Pulse Ox 07/31/19 04:35 65 135/97 100 07/31/19 04:34 67 97 07/31/19 01:50 97.2 F 72 16 140/80 97 - Laboratory Result Diagrams: 07/31/19 05:08 07/31/19 05:08 Lab Statement: Any lab studies that have been ordered have been reviewed, and results considered in the medical decision making process. GIGU Course/Dx - Course Course Of Treatment: Patient is here with chills, vomiting, headache that started while working. Patient's symptoms of overall improved to the point that she just has nausea right now. Patient has mild epigastric tenderness on exam is overall well-appearing. Patient a CBC, CMP, lipase, hCG performed which are all grossly unremarkable outside a mild leukocytosis. Patient was given Zofran and was able to tolerate by mouth prior to discharge. Patient continued to have a benign exam on the ED. - Diagnoses Provider Diagnoses: Vomiting, Chills Discharge ED - Sign-Out/Discharge Documenting (check all that apply): Patient Departure - Discharge Plan Condition: Stable Disposition: HOME Prescriptions: Ondansetron TAB* [Zofran 4 MG Tab*] 4 mg PO Q8HR PRN #12 tab PRN Reason: Vomiting Patient Education Materials: Abdominal Pain (ED) Forms: *Work Release Referrals: Megan Hinkle, TRAVEL CONSULTANT [Primary Care Provider] - Additional Instructions: Please return to the emergency department with any new or worsening symptoms, including worsening vomiting, worsening abdominal pain, or any other concerning symptoms. Follow up with your primary care provider in 1-3 days. - Billing Disposition and Condition Condition: STABLE Disposition: Home - Attestation Statements Document Initiated by Faisalibe: Yes Documenting Scribe: Alejandra Florentino Provider For Whom Soheila is Documenting (Include Credential): Chadd Smiley MD. Scribe Attestation: Alejandra Garza scribed for Chadd Smiley MD. on 07/31/19 at 0650. Scribe Documentation Reviewed: Yes Provider Attestation: The documentation as recorded by the coleeneAlejandra accurately reflects the service I personally performed and the decisions made by , Chadd Smiley MD. Status of Scribe Document: Viewed
[2019-07-31 05:26] LABS: ABS Eosinophils 0.1 10^3/ul (0-0.6); ABS Lymphocytes 1.7 10^3/ul (1.0-4.8); ABS Monocytes 0.4 10^3/ul (0-0.8); ABS Neutrophils 9.5 10^3/ul (1.5-7.7); Eosinophil % 0.5 %; Hematocrit 38 % (35-47); Hemoglobin 12.4 g/dL (12.0-16.0); Lymphocyte % 14.5 %; Mean Corpuscular HGB Conc 33 g/dL (31-36); Mean Corpuscular Hemoglobin 28 pg (27-31); Mean Corpuscular Volume 86 fL (80-97); Mean Platelet Volume 9.1 fL (7.4-10.4); Platelet Count 220 10^3/uL (150-450); Red Blood Count 4.41 10^6 /uL (3.70-4.87); Red Cell Distribution Width 14 % (10-15); White Blood Count 11.7 10^3/uL (3.5-10.8)
[2019-07-31 05:35] LABS: Albumin 4.1 g/dL (3.2-5.2); Anion Gap 7 mmol/L (2-11); CO2 Carbon Dioxide 22 mmol/L (22-32); Calcium 9.4 mg/dL (8.6-10.3); Chloride 106 mmol/L (101-111); Potassium 4.3 mmol/L (3.5-5.0); Sodium 135 mmol/L (135-145)
[2019-07-31 05:41] LABS: ALT 15 U/L (7-52); AST 14 U/L (13-39); Albumin/Globulin Ratio 1.6 (1-3); Alkaline Phosphatase 78 U/L (34-104); BUN/Creatinine Ratio 17.9 (8-20); Blood Urea Nitrogen 14 mg/dL (6-24); EGFR African American 105.7 (>60); EGFR Non-African American 87.3 (>60); Globulin 2.5 g/dL (2-4); Glucose 94 mg/dL (70-100); Total Protein 6.6 g/dL (6.4-8.9)
[2019-07-31 06:21] LABS: HCG Pregnancy < 0.60 mIU/mL
[2019-07-31 06:47] VITALS: BP 110/66
== END 2019-07-31 06:46 | disposition home or self-care (01) ==
LOC: ED 01:48
DX: R11.10 Vomiting, unspecified (principal); R68.83 Chills (without fever); D64.9 Anemia, unspecified; F41.9 Anxiety disorder, unspecified; F32.9 Major depressive disorder, single episode, unspecified; Z87.891 Personal history of nicotine dependence; Z88.2 Allergy status to sulfonamides; Z79.899 Other long term (current) drug therapy
CPT/HCPCS: 36415; 80053; 83690; 84702; 85025; 99282; A9270-GY

== ENCOUNTER 2019-12-08 18:02 | Emergency (ER) | payer BC ==
[2019-12-08] MEDS ORDERED: Diazepam TAB(*) 5 MG PO ONE (18:39)
--- NOTE | 2019-12-08 18:40 | ED ---
Back Pain - HPI Summary HPI Summary: Patient complains of bilateral lower back pain 1 week, states right side improved, but left lower back pain is persistent. Denies urinary retention, loss of bowel movement control, radiation into bilateral legs, neurological deficits. Patient denies initial traumatic event. 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 Denies any other injuries, pain or symptoms. - History of Current Complaint Chief Complaint: EDBackInjuryPain Stated Complaint: LOWER ABD PAIN Time Seen by Provider: 12/08/19 18:20 Hx Obtained From: Patient Hx Last Menstrual Period: 08/13/2018 Onset/Duration: Gradual Onset, Lasting Days Onset/Duration: Started Days Ago Timing: Constant Severity Initially: Moderate Severity Currently: Moderate Pain Intensity: 6 Pain Scale Used: 0-10 Numeric Character: Aching Aggravating Symptom(s): Movement Alleviating Symptom(s): Rest, Position Associated Signs And Symptoms: Positive: Negative - Allergies/Home Medications Allergies/Adverse Reactions: Allergies Allergy/AdvReac Type Severity Reaction Status Date / Time Sulfa (Sulfonamide Allergy Unknown Rash Verified 12/08/19 18:06 Antibiotics) PMH/Surg Hx/FS Hx/Imm Hx Endocrine/Hematology History: Reports: Hx Anemia - on ferrous sulfate Denies: Hx Anticoagulant Therapy, Hx Diabetes, Hx Thyroid Disease Cardiovascular History: Denies: Hx Auto Implanted Cardiovert Defib, Hx Congestive Heart Failure, Hx Deep Vein Thrombosis, Hx Hypertension, Hx Myocardial Infarction, Hx Pacemaker/ ICD Respiratory History: Denies: Hx Asthma, Hx Chronic Obstructive Pulmonary Disease (COPD), Hx Lung Cancer, Hx Pneumonia, Hx Pulmonary Embolism GI History: Denies: Hx Gall Bladder Disease, Hx Gastrointestinal Bleed, Hx Ulcer, Hx Urosepsis History: Reports: Hx Kidney Infection, Hx Kidney Stones - 03/2018 Denies: Hx Renal Disease Sensory History: Reports: Hx Contacts or Glasses - glasses Denies: Hx Hearing Aid Opthamlomology History: Reports: Hx Contacts or Glasses - glasses Neurological History: Reports: Hx Migraine Denies: Hx Dementia, Hx Seizures, Hx Transient Ischemic Attacks (TIA) Psychiatric History: Reports: Hx Anxiety, Hx Depression Denies: Hx Schizophrenia, Hx Bipolar Disorder - Cancer History Hx Chemotherapy: No - Surgical History Surgery Procedure, Year, and Place: t & A; ear tubes multiple times Hx Anesthesia Reactions: No - Immunization History Date of Influenza Vaccine: 06/2018 Infectious Disease History: No Infectious Disease History: Denies: Hx Hepatitis, Hx Human Immunodeficiency Virus (HIV), History Other Infectious Disease, Traveled Outside the [place] in Last 30 Days - Family History Known Family History: Positive: Cardiac Disease, Hypertension, Other - kidney stones - Social History Alcohol Use: None Hx Substance Use: No Substance Use Type: Reports: None Hx Tobacco Use: Yes - quit 2011 Smoking Status (MU): Former Smoker Type: Cigarettes Review of Systems Constitutional: Negative Eyes: Negative ENT: Negative Cardiovascular: Negative Respiratory: Negative Gastrointestinal: Negative Genitourinary: Negative Musculoskeletal: Other Skin: Negative Neurological: Negative Psychological: Normal All Other Systems Reviewed And Are Negative: Yes Physical Exam - Summary Physical Exam Summary: Tenderness along the paraspinal muscles of the lumbar spine. No CVA tenderness. PMS intact distally bilateral lower extremities. Triage Information Reviewed: Yes Vital Signs On Initial Exam: Initial Vitals Temp Pulse Resp BP Pulse Ox 97.1 F 80 19 150/90 98 12/08/19 18:05 12/08/19 18:05 12/08/19 18:05 12/08/19 18:05 12/08/19 18:05 Vital Signs Reviewed: Yes Appearance: Positive: Well-Appearing Skin: Positive: Warm Head/Face: Positive: Normal Head/Face Inspection Eyes: Positive: Normal Neck: Positive: Supple Respiratory/Lung Sounds: Positive: Clear to Auscultation Cardiovascular: Positive: Normal Abdomen Description: Positive: Nontender Musculoskeletal: Positive: Normal Neurological: Positive: Normal Psychiatric: Positive: Normal AVPU Assessment: Alert - [place] Coma Scale Best Eye Response: 4 - Spontaneous Best Motor Response: 6 - Obeys Commands Best Verbal Response: 5 - Oriented Coma Scale Total: 15 Procedures - Sedation Patient Received Moderate/Deep Sedation with Procedure: No Diagnostics - Vital Signs Vital Signs Temp Pulse Resp BP Pulse Ox 12/08/19 18:05 97.1 F 80 19 150/90 98 - Laboratory Lab Statement: Any lab studies that have been ordered have been reviewed, and results considered in the medical decision making process. Back Pain Course/Dx - Course Course Of Treatment: Patient complains of bilateral lower back pain 1 week, states right side improved, but left lower back pain is persistent. Denies urinary retention, loss of bowel movement control, radiation into bilateral legs , neurological deficits. Patient denies initial traumatic event. 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 Denies any other injuries, pain or symptoms. Vital signs within normal limits. Patient's symptoms improved with Valium 5 mg by mouth. - Diagnoses Provider Diagnoses: Back muscle spasm Discharge ED - Sign-Out/Discharge Documenting (check all that apply): Patient Departure - Discharge Plan Condition: Stable Disposition: HOME Prescriptions: Cyclobenzaprine TAB* [Flexeril 10 MG TAB*] 10 mg PO TID PRN 4 Days #12 tab PRN Reason: Pain - Moderate Diazepam TAB(*) [Valium TAB(*)] 5 mg PO TID PRN 2 Days #5 tab MDD 3 tabs PRN Reason: Pain - Moderate Patient Education Materials: Muscle Spasm (ED) Referrals: No Primary Care Phys,NOPCP [Primary Care Provider] - Additional Instructions: Take Valium as directed when you get home. Be aware that this medicine can make you drowsy. You may take Flexeril during the day, but this can also may make you drowsy. Take ibuprofen 600 mg every 6 hours for couple days. Rest back as much as possible. Return to the ED for any new or worsening symptoms. - Billing Disposition and Condition Condition: STABLE Disposition: Home
[2019-12-08 18:55] LABS: Urine Appearance Cloudy; Urine Bilirubin Negative (Negative); Urine Blood Negative (Negative); Urine Color Yellow; Urine Glucose Negative (Negative); Urine Ketones Negative (Negative); Urine Nitrite Negative (Negative); Urine Protein Negative (Negative); Urine Urobilinogen Negative (Negative)
[2019-12-08 18:58] LABS: Urine Bacteria Absent (Absent); Urine Red Blood Cell Absent (Absent); Urine Squamous Epithelial Cell Present (Absent); Urine White Blood Cell 2+(11-20/hpf) (Absent)
[2019-12-08 20:04] VITALS: BP 134/92
== END 2019-12-08 20:03 | disposition home or self-care (01) ==
LOC: ED 18:02
DX: M62.830 Muscle spasm of back (principal); M54.5 Low back pain; D64.9 Anemia, unspecified; Z87.442 Personal history of urinary calculi; F41.9 Anxiety disorder, unspecified; F32.9 Major depressive disorder, single episode, unspecified; Z87.891 Personal history of nicotine dependence
CPT/HCPCS: 81003; 81015; 87086; 99282; A9270-GY